=== PATIENT | female | born 1960 | race Caucasian/White ===

== ENCOUNTER 2017-05-11 05:48 | Inpatient (IN) | payer OTHER ==
[2017-05-11] MEDS ORDERED: SUGAMMADEX SODIUM 200 MG/2 ML VIAL IV (07:00)
[2017-05-11] MEDS ORDERED: ROCURONIUM 50 MG INJ (07:20)
[2017-05-11] MEDS ORDERED: GLYCOPYRROLATE 0.4 MG INJ (07:20)
[2017-05-11] MEDS ORDERED: MIDAZOLAM 1 MG/ML 2 ML INJ (07:20)
[2017-05-11] MEDS ORDERED: CEFAZOLIN 1 GM INJ (07:20)
[2017-05-11] MEDS ORDERED: PROPOFOL 20 ML (07:20)
[2017-05-11] MEDS ORDERED: NEOSTIGMINE 3 MG/3 ML SYRINGE (07:20)
[2017-05-11] MEDS ORDERED: DEXAMETHASONE 4 MG/ML 1 ML INJ (07:21)
[2017-05-11] MEDS ORDERED: FENTAnyl 50 MCG/ML VIAL (07:21)
[2017-05-11] MEDS ORDERED: ONDANSETRON 4 MG INJ (07:21)
[2017-05-11] MEDS ORDERED: morphine SULFATE/PF (10 MG/10 ML) INJ (07:26)
[2017-05-11] MEDS: CEFAZOLIN 2 GM/50 ML (PMX) 50 ML IVPB (07:43)
[2017-05-11] MEDS: TRANEXAMIC ACID 1,000 MG in DEXTROSE 5% 100 ML IV (08:00)
[2017-05-11] MEDS: TRANEXAMIC ACID 1,000 MG in DEXTROSE 5% 100 ML IVPB ×2 (08:07→08:26)
[2017-05-11] MEDS: BACITRACIN 50000 UNITS INJ IRR (08:20)
[2017-05-11] MEDS: POLYMYXIN B 500000 UNIT INJ (08:20)
[2017-05-11] MEDS ORDERED: MIDAZOLAM 1 MG/ML 2 ML INJ IV (09:30)
[2017-05-11] MEDS ORDERED: OXYCODONE/ACETAMINOPHEN (5/325) TAB PO ×2 (09:30)
[2017-05-11] MEDS ORDERED: ALBUTEROL 0.083% (NEB) 2.5 MG/3 ML AMP HHN (09:30)
[2017-05-11] MEDS ORDERED: EPHEDrine SULFATE 50 MG/5 ML SYG IV (09:30)
[2017-05-11] MEDS ORDERED: DIPHENHYDRAMINE 50 MG INJ IV (09:30)
[2017-05-11] MEDS ORDERED: hydrALAzine 20 MG INJ IV (09:30)
[2017-05-11] MEDS ORDERED: LABETALOL HCL 20MG INJ IV (09:30)
[2017-05-11] MEDS ORDERED: MEPERIDINE 25 MG INJ IV (09:30)
[2017-05-11] MEDS ORDERED: TRIMETHOBENZAMIDE 100 MG/ML VIAL IM (09:30)
[2017-05-11] MEDS ORDERED: ONDANSETRON 4 MG INJ IV (09:30)
[2017-05-11] MEDS ORDERED: FENTAnyl 50 MCG/ML VIAL IV ×3 (09:30)
[2017-05-11] MEDS ORDERED: IPRATROPIUM (NEB) 0.5 MG/2.5 ML AMP HHN (09:30)
[2017-05-11] MEDS ORDERED: HYDROmorphONE (0.2 MG/ML) 10ML SYG IV ×3 (09:30)
[2017-05-11] MEDS ORDERED: BETHANECHOL 25 MG TAB PO (10:00)
[2017-05-11] MEDS ORDERED: NA PHOSPHATE/BIPHOS 133 ML ENEMA PR (10:00)
[2017-05-11] MEDS ORDERED: NACL 0.9% 3 ML SYG IV (10:00)
[2017-05-11] MEDS ORDERED: ZOLPIDEM 5 MG TAB PO (10:00)
[2017-05-11] MEDS ORDERED: MAGNESIUM HYDROXIDE 30ML CUP PO (10:00)
[2017-05-11] MEDS ORDERED: SENNA/DOCUSATE NA (8.6MG/50MG) TAB PO (10:00)
[2017-05-11] MEDS ORDERED: NALOXONE (0.4 MG/ML) INJ IV (10:00)
[2017-05-11] MEDS ORDERED: BISACODYL 10 MG SUPP PR (10:00)
[2017-05-11] MEDS ORDERED: BACITRACIN 50000 UNITS INJ (10:12)
[2017-05-11] MEDS: CEFAZOLIN 1 GM/50 ML (PMX) 50 ML IVPB ×2 (10:18→17:31)
[2017-05-11] MEDS: ASPIRIN (EC) 325 MG TAB PO (10:19)
[2017-05-11] MEDS: ONDANSETRON 4 MG INJ IV ×3 (10:19→22:00)
[2017-05-11] MEDS: DOCUSATE SODIUM 100 MG CAP PO (10:19)
[2017-05-11] MEDS: SOD CHLORIDE 0.9% 1,000 ML IV (10:20)
[2017-05-11] MEDS: DIPHENHYDRAMINE 50 MG INJ IM (11:07)
[2017-05-11] MEDS: METOCLOPRAMIDE 10 MG INJ IV (12:09)
[2017-05-11] MEDS: GABAPENTIN 100 MG CAP PO ×2 (12:21→20:20)
[2017-05-11] MEDS: DIPHENHYDRAMINE 50 MG INJ IV (17:31)
[2017-05-11] MEDS ORDERED: GABAPENTIN 100 MG CAP PO (21:00)
[2017-05-12] MEDS: SOD CHLORIDE 0.9% 1,000 ML IV ×2 (00:18→09:45)
[2017-05-12] MEDS: oxyCODONE 5 MG TAB PO ×3 (00:24→11:03)
[2017-05-12] MEDS: CEFAZOLIN 1 GM/50 ML (PMX) 50 ML IVPB (02:04)
[2017-05-12] MEDS: KETOROLAC 15 MG INJ IV (02:05)
[2017-05-12] MEDS: ONDANSETRON 4 MG INJ IV (04:12)
[2017-05-12 05:51] LABS: ADD MAN DIFF? NO
[2017-05-12 06:00] LABS: BASOPHILS % 0.1 % (0.0-2.0); EOSINOPHILS % 0.1 % (0.0-7.0); HEMATOCRIT 26.4 % (37.0-47.0); HEMOGLOBIN 8.6 g/dl (12.0-16.0); LYMPHOCYTES # 1.4 10^3/ul (0.8-2.9); LYMPHOCYTES % 16.8 % (15.0-51.0); MEAN CORPUSCULAR HEMOGLOBIN 30.9 pg (29.0-33.0); MEAN CORPUSCULAR HGB CONC 32.6 g/dl (32.0-37.0); MEAN PLATELET VOLUME 9.4 fl (7.4-10.4); MONOCYTE # 1.1 10^3/ul (0.3-0.9); MONOCYTES % 12.5 % (0.0-11.0); NEUTROPHILS % 69.9 % (39.0-77.0); PLATELET COUNT 257 10^3/UL (140-415); RED BLOOD COUNT 2.78 10^6/ul (4.20-5.40); RED CELL DISTRIBUTION WIDTH 13.2 % (11.5-14.5)
[2017-05-12 06:00] LABS: WHITE BLOOD COUNT 8.6 10^3/ul (4.8-10.8)
[2017-05-12 06:32] LABS: ANION GAP 11 (8-16); BLOOD UREA NITROGEN 17 mg/dl (7-20); CALCIUM 8.7 mg/dl (8.4-10.2); CARBON DIOXIDE 27 mmol/L (21-31); CHLORIDE 104 mmol/L (97-110); CREATININE 0.82 mg/dl (0.44-1.00); GLUCOSE 103 mg/dl (70-220); POTASSIUM 4.6 mmol/L (3.5-5.1); SODIUM 137 mmol/L (135-144)
[2017-05-12] MEDS: LEVOTHYROXINE 50 MCG TAB PO (06:32)
[2017-05-12] MEDS: PANTOPRAZOLE (EC) 40 MG TAB PO (06:32)
[2017-05-12] MEDS: CALCIUM/VITAMIN D (500/200) TAB PO (08:34)
[2017-05-12] MEDS: ASCORBIC ACID 500 MG TAB PO (08:34)
[2017-05-12] MEDS: ASPIRIN (EC) 325 MG TAB PO (08:34)
[2017-05-12] MEDS: GABAPENTIN 100 MG CAP PO ×2 (08:34→12:13)
[2017-05-12] MEDS: FERROUS FUMARATE (SR) TAB PO (08:34)
[2017-05-12] MEDS: DOCUSATE SODIUM 100 MG CAP PO (08:34)
[2017-05-12] MEDS ORDERED: CELECOXIB 200 MG CAP PO (09:00)
[2017-05-12] MEDS: CELECOXIB 100 MG CAP PO (09:42)
[2017-05-12] MEDS ORDERED: oxyCODONE 15 MG TAB PO (11:00)
== END 2017-05-12 15:25 | disposition home health service (06) | DRG 470 ==
LOC: REC 05:48 → MS1 10:55
PROC: 0SR904A Replacement of Right Hip Joint with Ceramic on Polyethylene Synthetic Substitute, Uncemented, Open Approach (ICD-10-PCS; principal; 2017-05-11 07:30)
DX: M16.11 Unilateral primary osteoarthritis, right hip (principal); E66.9 Obesity, unspecified; E55.9 Vitamin D deficiency, unspecified; Z68.34 Body mass index [BMI] 34.0-34.9, adult; E03.9 Hypothyroidism, unspecified; D64.9 Anemia, unspecified
CPT/HCPCS: 73530; 80048; 85025; 86850; 86900; 86901; 87081; 88305; 88311; 97110; 97116; 97163; 97530

== ENCOUNTER 2017-09-08 03:48 | Inpatient (IN) | payer OTHER ==
[2017-09-08] MEDS ORDERED: DOCUSATE SODIUM 100 MG CAP PO (05:30)
[2017-09-08] MEDS ORDERED: MAGNESIUM HYDROXIDE 30ML CUP PO (05:30)
[2017-09-08] MEDS ORDERED: NACL 0.9% 3 ML SYG IV (05:30)
[2017-09-08] MEDS ORDERED: BISACODYL (EC) 5 MG TAB PO (05:30)
[2017-09-08] MEDS ORDERED: morphine 2 MG INJ IV (05:30)
[2017-09-08] MEDS: SOD CHLORIDE 0.9% 1,000 ML IV ×3 (06:13→19:43)
[2017-09-08] MEDS ORDERED: VANCOMYCIN IV PER PHARMACY XX (07:00)
[2017-09-08] MEDS: LACTOBACILLUS RHAMNOSUS CAP PO ×2 (08:18→21:27)
[2017-09-08] MEDS: FAMOTIDINE 20 MG TAB PO ×2 (08:18→21:27)
[2017-09-08] MEDS: VANCOMYCIN 2 GM in SOD CHLORIDE 0.9% 500 ML IVPB (10:02)
[2017-09-08] MEDS: OXYCODONE/ACETAMINOPHEN (5/325) TAB PO ×2 (12:54→19:34)
[2017-09-08] MEDS: ONDANSETRON 4 MG INJ IV (12:55)
[2017-09-08] MEDS ORDERED: morphine LIQ (10 MG/5 ML) CUP PO (14:30)
[2017-09-08] MEDS: IOHEXOL 300MG/ML 30 ML BTL (19:20)
[2017-09-08] MEDS: LIDOCAINE 1% (MDV) 10 ML INJ (19:20)
[2017-09-08] MEDS: VANCOMYCIN 1.25 GM in SOD CHLORIDE 0.9% 250 ML IVPB (21:27)
[2017-09-09] MEDS: OXYCODONE/ACETAMINOPHEN (10/325) TAB PO ×2 (01:22→09:35)
[2017-09-09] MEDS: SOD CHLORIDE 0.9% 1,000 ML IV ×4 (02:00→18:49)
[2017-09-09 05:57] LABS: ADD MAN DIFF? NO
[2017-09-09 06:00] LABS: WHITE BLOOD COUNT 13.8 10^3/ul (4.8-10.8)
[2017-09-09 06:00] LABS: BASOPHILS % 0.2 % (0.0-2.0); EOSINOPHILS % 0.1 % (0.0-7.0); HEMATOCRIT 29.1 % (37.0-47.0); HEMOGLOBIN 9.4 g/dl (12.0-16.0); LYMPHOCYTES # 1.7 10^3/ul (0.8-2.9); LYMPHOCYTES % 12.5 % (15.0-51.0); MEAN CORPUSCULAR HEMOGLOBIN 29.6 pg (29.0-33.0); MEAN CORPUSCULAR HGB CONC 32.3 g/dl (32.0-37.0); MEAN CORPUSCULAR VOLUME 91.5 fl (82.0-101.0); MONOCYTE # 1.2 10^3/ul (0.3-0.9); MONOCYTES % 8.3 % (0.0-11.0); NEUTROPHIL # 10.8 10^3/ul (1.6-7.5); PLATELET COUNT 273 10^3/UL (140-415); RED BLOOD COUNT 3.18 10^6/ul (4.20-5.40); RED CELL DISTRIBUTION WIDTH 14.4 % (11.5-14.5)
[2017-09-09 06:17] LABS: LACTIC ACID 0.9 mmol/L (0.5-2.0)
[2017-09-09 06:36] LABS: ALANINE AMINOTRANSFERASE 35 IU/L (13-69); ALBUMIN 3.4 g/dl (3.3-4.9); ALKALINE PHOSPHATASE 77 IU/L (42-121); ANION GAP 11 (8-16); ASPARTATE AMINO TRANSFERASE 24 IU/L (15-46); BILIRUBIN,INDIRECT 0.4 mg/dl (0-1.1); BILIRUBIN,TOTAL 0.4 mg/dl (0.2-1.3); BLOOD UREA NITROGEN 13 mg/dl (7-20); CALCIUM 8.8 mg/dl (8.4-10.2); CARBON DIOXIDE 27 mmol/L (21-31); CHLORIDE 106 mmol/L (97-110); CREATININE 0.96 mg/dl (0.44-1.00); GLUCOSE 102 mg/dl (70-220); POTASSIUM 3.4 mmol/L (3.5-5.1); SODIUM 141 mmol/L (135-144); TOTAL PROTEIN 6.8 g/dl (6.1-8.1)
[2017-09-09 07:11] LABS: HEMOGLOBIN A1C 5.6 % (0-5.9)
[2017-09-09] MEDS: ONDANSETRON 4 MG INJ IV ×5 (08:30→21:38)
[2017-09-09] MEDS: FAMOTIDINE 20 MG TAB PO ×2 (09:00→21:38)
[2017-09-09] MEDS: LACTOBACILLUS RHAMNOSUS CAP PO ×2 (09:00→21:36)
[2017-09-09] MEDS ORDERED: ASCORBIC ACID 500 MG TAB.CHEW PO (09:16)
[2017-09-09] MEDS: GABAPENTIN 100 MG CAP PO ×3 (09:16→21:37)
[2017-09-09] MEDS: LEVOTHYROXINE 50 MCG TAB PO (09:17)
[2017-09-09] MEDS: ASCORBIC ACID 500 MG TAB PO (09:26)
[2017-09-09] MEDS: VANCOMYCIN 1.25 GM in SOD CHLORIDE 0.9% 250 ML IVPB ×2 (09:35→21:38)
[2017-09-09] MEDS: CALCIUM/VITAMIN D (500/200) TAB PO (11:00)
[2017-09-09] MEDS ORDERED: POLYMYXIN B 500000 UNIT INJ ×2 (13:28→15:53)
[2017-09-09] MEDS ORDERED: ROCURONIUM 50 MG INJ (13:51)
[2017-09-09] MEDS ORDERED: METOCLOPRAMIDE 10 MG INJ (13:51)
[2017-09-09] MEDS ORDERED: MIDAZOLAM 1 MG/ML 2 ML INJ (13:51)
[2017-09-09] MEDS ORDERED: FENTAnyl 50 MCG/ML VIAL ×2 (13:51→16:46)
[2017-09-09] MEDS ORDERED: PROPOFOL 20 ML (13:51)
[2017-09-09] MEDS ORDERED: ONDANSETRON 4 MG INJ ×2 (13:51→16:27)
[2017-09-09] MEDS ORDERED: SUCCINYLCHOLINE CHLORIDE 100 MG/5 ML SYG IV (13:51)
[2017-09-09] MEDS ORDERED: BUPIVACAINE 0.75%/DEXT (SPINAL) 2 ML INJ (13:53)
[2017-09-09] MEDS ORDERED: DIPHENHYDRAMINE 50 MG INJ IV ×2 (15:00→17:00)
[2017-09-09] MEDS ORDERED: BETHANECHOL 25 MG TAB PO (15:00)
[2017-09-09] MEDS ORDERED: MAGNESIUM HYDROXIDE 30ML CUP PO (15:00)
[2017-09-09] MEDS ORDERED: BISACODYL 10 MG SUPP PR (15:00)
[2017-09-09] MEDS ORDERED: NA PHOSPHATE/BIPHOS 133 ML ENEMA PR (15:00)
[2017-09-09] MEDS ORDERED: NALOXONE (0.4 MG/ML) INJ IV (15:00)
[2017-09-09] MEDS ORDERED: SENNA/DOCUSATE NA (8.6MG/50MG) TAB PO (15:00)
[2017-09-09] MEDS ORDERED: NACL 0.9% 3 ML SYG IV (15:00)
[2017-09-09] MEDS ORDERED: CEFAZOLIN 1 GM/50 ML (PMX) 50 ML IVPB (15:00)
[2017-09-09] MEDS ORDERED: VANCOMYCIN 1 GM INJ (15:24)
[2017-09-09] MEDS: POLYMYXIN B 500000 UNIT INJ (15:31)
[2017-09-09] MEDS: BACITRACIN 50000 UNITS INJ (15:31)
[2017-09-09] MEDS ORDERED: ACETAMINOPHEN 1000MG/100ML IV 100 ML (16:22)
[2017-09-09] MEDS ORDERED: KETOROLAC 30 MG INJ (16:22)
[2017-09-09] MEDS ORDERED: MEPERIDINE 25 MG INJ (16:54)
[2017-09-09] MEDS ORDERED: METOCLOPRAMIDE 10 MG INJ IV (17:00)
[2017-09-09] MEDS ORDERED: FENTAnyl 50 MCG/ML VIAL IV (17:00)
[2017-09-09] MEDS: LIDOCAINE 1% (MPF) 5 ML VIAL SC (17:00)
[2017-09-09] MEDS ORDERED: TRIMETHOBENZAMIDE 100 MG/ML VIAL IM (17:00)
[2017-09-09] MEDS ORDERED: LABETALOL HCL 20MG INJ IV (17:00)
[2017-09-09] MEDS ORDERED: OXYCODONE/ACETAMINOPHEN (5/325) TAB PO ×2 (17:00)
[2017-09-09] MEDS ORDERED: HYDROmorphONE 1 MG/5 ML IV SYRINGE IV (17:00)
[2017-09-09] MEDS ORDERED: hydrALAzine 20 MG INJ IV (17:00)
[2017-09-09] MEDS ORDERED: PROCHLORPERAZINE 10 MG INJ IV (17:00)
[2017-09-09] MEDS: morphine (1 MG/ML) 10ML SYRINGE IV ×3 (17:16→17:44)
[2017-09-09] MEDS: MEPERIDINE 25 MG INJ IV (17:20)
[2017-09-09] MEDS: ASPIRIN (EC) 325 MG TAB PO (17:30)
[2017-09-09] MEDS: DOCUSATE SODIUM 100 MG CAP PO (17:31)
[2017-09-09] MEDS: CEFTRIAXONE 1 GM/50 ML (PMX) 50 ML IVPB (18:49)
[2017-09-09] MEDS ORDERED: GABAPENTIN 100 MG CAP PO (21:00)
[2017-09-09 21:04] LABS: VANCOMYCIN,TROUGH 12.4 ug/ml (10.0-20.0)
[2017-09-10] MEDS: KETOROLAC 15 MG INJ IV ×4 (02:41→23:25)
[2017-09-10] MEDS: ONDANSETRON 4 MG INJ IV ×3 (02:42→16:07)
[2017-09-10 05:54] LABS: ADD MAN DIFF? NO
[2017-09-10] MEDS: PANTOPRAZOLE (EC) 40 MG TAB PO (06:08)
[2017-09-10] MEDS: LEVOTHYROXINE 50 MCG TAB PO (06:08)
[2017-09-10 06:41] LABS: ANION GAP 13 (8-16); BLOOD UREA NITROGEN 15 mg/dl (7-20); CALCIUM 8.5 mg/dl (8.4-10.2); CARBON DIOXIDE 23 mmol/L (21-31); CHLORIDE 109 mmol/L (97-110); CREATININE 0.94 mg/dl (0.44-1.00); GLUCOSE 87 mg/dl (70-220); POTASSIUM 3.2 mmol/L (3.5-5.1); SODIUM 142 mmol/L (135-144)
[2017-09-10 07:07] LABS: BASOPHILS % 0.2 % (0.0-2.0); EOSINOPHILS % 0.3 % (0.0-7.0); HEMATOCRIT 25.5 % (37.0-47.0); HEMOGLOBIN 8.2 g/dl (12.0-16.0); LYMPHOCYTES # 1.3 10^3/ul (0.8-2.9); LYMPHOCYTES % 11.6 % (15.0-51.0); MEAN CORPUSCULAR HEMOGLOBIN 29.7 pg (29.0-33.0); MEAN CORPUSCULAR HGB CONC 32.2 g/dl (32.0-37.0); MEAN CORPUSCULAR VOLUME 92.4 fl (82.0-101.0); MEAN PLATELET VOLUME 9.8 fl (7.4-10.4); MONOCYTE # 0.9 10^3/ul (0.3-0.9); NEUTROPHIL # 9.1 10^3/ul (1.6-7.5); NEUTROPHILS % 78.9 % (39.0-77.0); PLATELET COUNT 263 10^3/UL (140-415); RED BLOOD COUNT 2.76 10^6/ul (4.20-5.40); RED CELL DISTRIBUTION WIDTH 14.4 % (11.5-14.5)
[2017-09-10 07:07] LABS: WHITE BLOOD COUNT 11.6 10^3/ul (4.8-10.8)
[2017-09-10] MEDS: POTASSIUM CHLORIDE (SR) 20 MEQ TAB PO ×2 (08:27→12:18)
[2017-09-10] MEDS ORDERED: CALCIUM CARB PO (09:00)
[2017-09-10] MEDS ORDERED: CELECOXIB 200 MG CAP PO (09:00)
[2017-09-10] MEDS ORDERED: [UNRECOGNIZED DRUG - OTHER] PO (09:00)
[2017-09-10] MEDS: VANCOMYCIN 1.25 GM in SOD CHLORIDE 0.9% 250 ML IVPB (09:23)
[2017-09-10] MEDS: GABAPENTIN 100 MG CAP PO ×3 (09:24→20:43)
[2017-09-10] MEDS: DOCUSATE SODIUM 100 MG CAP PO ×2 (09:24→20:43)
[2017-09-10] MEDS: LACTOBACILLUS RHAMNOSUS CAP PO ×2 (09:24→20:43)
[2017-09-10] MEDS: FAMOTIDINE 20 MG TAB PO ×2 (09:25→20:43)
[2017-09-10] MEDS: CALCIUM/VITAMIN D (500/200) TAB PO (09:25)
[2017-09-10] MEDS: ASCORBIC ACID 500 MG TAB PO (09:25)
[2017-09-10] MEDS: FERROUS FUMARATE (SR) TAB PO ×2 (09:25→20:42)
[2017-09-10] MEDS: ASPIRIN (EC) 325 MG TAB PO (09:25)
[2017-09-10] MEDS: CELECOXIB 100 MG CAP PO ×2 (11:35→20:43)
[2017-09-10] MEDS: SOD CHLORIDE 0.9% 1,000 ML IV (16:02)
[2017-09-10] MEDS: CEFTRIAXONE 1 GM/50 ML (PMX) 50 ML IVPB (18:18)
[2017-09-10] MEDS: VANCOMYCIN 1.5 GM in SOD CHLORIDE 0.9% 250 ML IVPB (20:45)
[2017-09-11] MEDS: SOD CHLORIDE 0.9% 1,000 ML IV ×2 (04:11→16:41)
[2017-09-11 05:17] LABS: ADD MAN DIFF? NO
[2017-09-11 05:27] LABS: WHITE BLOOD COUNT 7.3 10^3/ul (4.8-10.8)
[2017-09-11 05:27] LABS: BASOPHILS % 0.3 % (0.0-2.0); EOSINOPHILS # 0.1 10^3/ul (0.0-0.5); EOSINOPHILS % 1.9 % (0.0-7.0); HEMOGLOBIN 7.5 g/dl (12.0-16.0); LYMPHOCYTES # 1.1 10^3/ul (0.8-2.9); LYMPHOCYTES % 15.2 % (15.0-51.0); MEAN CORPUSCULAR HEMOGLOBIN 29.4 pg (29.0-33.0); MEAN CORPUSCULAR HGB CONC 32.6 g/dl (32.0-37.0); MEAN CORPUSCULAR VOLUME 90.2 fl (82.0-101.0); MEAN PLATELET VOLUME 9.8 fl (7.4-10.4); MONOCYTE # 0.7 10^3/ul (0.3-0.9); MONOCYTES % 9.9 % (0.0-11.0); NEUTROPHILS % 68.3 % (39.0-77.0); PLATELET COUNT 277 10^3/UL (140-415); RED BLOOD COUNT 2.55 10^6/ul (4.20-5.40); RED CELL DISTRIBUTION WIDTH 14.6 % (11.5-14.5)
[2017-09-11 05:59] LABS: ANION GAP 10 (8-16); BLOOD UREA NITROGEN 14 mg/dl (7-20); CALCIUM 8.4 mg/dl (8.4-10.2); CARBON DIOXIDE 25 mmol/L (21-31); CHLORIDE 111 mmol/L (97-110); CREATININE 0.98 mg/dl (0.44-1.00); GLUCOSE 88 mg/dl (70-220); POTASSIUM 3.8 mmol/L (3.5-5.1); SODIUM 142 mmol/L (135-144)
[2017-09-11] MEDS: LEVOTHYROXINE 50 MCG TAB PO (06:08)
[2017-09-11] MEDS: PANTOPRAZOLE (EC) 40 MG TAB PO (06:08)
[2017-09-11] MEDS: GABAPENTIN 100 MG CAP PO ×3 (08:45→20:59)
[2017-09-11] MEDS: oxyCODONE 5 MG TAB PO ×2 (08:45→17:20)
[2017-09-11] MEDS: CELECOXIB 100 MG CAP PO ×2 (08:45→20:58)
[2017-09-11] MEDS: LACTOBACILLUS RHAMNOSUS CAP PO ×2 (08:48→20:58)
[2017-09-11] MEDS: ASPIRIN (EC) 325 MG TAB PO (08:48)
[2017-09-11] MEDS: ASCORBIC ACID 500 MG TAB PO (08:48)
[2017-09-11] MEDS: CALCIUM/VITAMIN D (500/200) TAB PO (08:48)
[2017-09-11] MEDS: FERROUS FUMARATE (SR) TAB PO ×2 (08:48→20:58)
[2017-09-11] MEDS: FAMOTIDINE 20 MG TAB PO ×2 (08:49→20:59)
[2017-09-11] MEDS: DOCUSATE SODIUM 100 MG CAP PO ×2 (08:49→20:58)
[2017-09-11] MEDS: VANCOMYCIN 1.5 GM in SOD CHLORIDE 0.9% 250 ML IVPB (08:49)
[2017-09-11 13:57] LABS: IRON 30 ug/dl (35-150)
[2017-09-11 14:07] LABS: % IRON SATURATION 15 % SAT (22-52); TOTAL IRON BINDING CAPACITY 196 ug/dl (241-421)
[2017-09-11] MEDS: FERROUS SULFATE (EC) 325 MG TAB PO (15:20)
[2017-09-11] MEDS: OXACILLIN 2 GM in SOD CHLORIDE 0.9% 50 ML IVPB (21:00)
[2017-09-11] MEDS: ACETAMINOPHEN 325 MG TAB PO (21:27)
[2017-09-11 22:32] LABS: ADD MAN DIFF? NO
[2017-09-11 22:35] LABS: WHITE BLOOD COUNT 7.9 10^3/ul (4.8-10.8)
[2017-09-11 22:35] LABS: ABNORMAL IP MESSAGE 1; BASOPHIL # 0.1 10^3/ul (0.0-0.1); BASOPHILS % 0.6 % (0.0-2.0); EOSINOPHILS # 0.2 10^3/ul (0.0-0.5); EOSINOPHILS % 2.3 % (0.0-7.0); HEMATOCRIT 25.3 % (37.0-47.0); HEMOGLOBIN 8.3 g/dl (12.0-16.0); LYMPHOCYTES # 1.5 10^3/ul (0.8-2.9); LYMPHOCYTES % 18.7 % (15.0-51.0); MEAN CORPUSCULAR HEMOGLOBIN 29.9 pg (29.0-33.0); MEAN CORPUSCULAR HGB CONC 32.8 g/dl (32.0-37.0); MEAN PLATELET VOLUME 9.3 fl (7.4-10.4); MONOCYTE # 0.9 10^3/ul (0.3-0.9); MONOCYTES % 11.6 % (0.0-11.0); NEUTROPHIL # 4.7 10^3/ul (1.6-7.5); PLATELET COUNT 326 10^3/UL (140-415); RED BLOOD COUNT 2.78 10^6/ul (4.20-5.40); RED CELL DISTRIBUTION WIDTH 14.6 % (11.5-14.5)
[2017-09-11 22:44] LABS: POSITIVE DIFF @See below
[2017-09-11 22:47] LABS: ADD UMIC NO; UR ASCORBIC ACID 20 mg/dL (NEGATIVE); UR BILIRUBIN (Dip) NEGATIVE (NEGATIVE); UR BLOOD (Dip) NEGATIVE (NEGATIVE); UR CLARITY CLEAR (CLEAR); UR COLOR YELLOW (YELLOW); UR GLUCOSE (Dip) NEGATIVE (NEGATIVE); UR KETONES (Dip) NEGATIVE (NEGATIVE); UR LEUKOCYTE ESTERASE (Dip) NEGATIVE Leu/ul (NEGATIVE); UR NITRITE (Dip) NEGATIVE (NEGATIVE); UR SPECIFIC GRAVITY (Dip) 1.011 (1.003-1.030); UR TOTAL PROTEIN (Dip) NEGATIVE (NEGATIVE); UR UROBILINOGEN (Dip) NEGATIVE (NEGATIVE)
[2017-09-12] MEDS: OXACILLIN 2 GM in SOD CHLORIDE 0.9% 50 ML IVPB ×6 (01:28→21:00)
[2017-09-12] MEDS: ONDANSETRON 4 MG INJ IV ×2 (03:03→15:17)
[2017-09-12] MEDS: SOD CHLORIDE 0.9% 1,000 ML IV ×2 (05:11→17:41)
[2017-09-12 05:38] LABS: ADD MAN DIFF? NO
[2017-09-12 05:46] LABS: WHITE BLOOD COUNT 7.1 10^3/ul (4.8-10.8)
[2017-09-12 05:46] LABS: ABNORMAL IP MESSAGE 1; BASOPHILS % 0.3 % (0.0-2.0); EOSINOPHILS # 0.2 10^3/ul (0.0-0.5); EOSINOPHILS % 2.4 % (0.0-7.0); HEMATOCRIT 22.8 % (37.0-47.0); HEMOGLOBIN 7.3 g/dl (12.0-16.0); LYMPHOCYTES # 1.2 10^3/ul (0.8-2.9); LYMPHOCYTES % 16.4 % (15.0-51.0); MEAN CORPUSCULAR HEMOGLOBIN 29.1 pg (29.0-33.0); MEAN CORPUSCULAR VOLUME 90.8 fl (82.0-101.0); MEAN PLATELET VOLUME 9.7 fl (7.4-10.4); MONOCYTES % 14.2 % (0.0-11.0); NEUTROPHIL # 4.1 10^3/ul (1.6-7.5); NEUTROPHILS % 58.4 % (39.0-77.0); PLATELET COUNT 293 10^3/UL (140-415); RED BLOOD COUNT 2.51 10^6/ul (4.20-5.40); RED CELL DISTRIBUTION WIDTH 14.6 % (11.5-14.5)
[2017-09-12 06:00] LABS: POSITIVE DIFF @See below
[2017-09-12] MEDS: LEVOTHYROXINE 50 MCG TAB PO (06:11)
[2017-09-12] MEDS: PANTOPRAZOLE (EC) 40 MG TAB PO (06:11)
[2017-09-12 06:20] LABS: ANION GAP 11 (8-16); BLOOD UREA NITROGEN 12 mg/dl (7-20); CALCIUM 8.5 mg/dl (8.4-10.2); CARBON DIOXIDE 26 mmol/L (21-31); CHLORIDE 108 mmol/L (97-110); CREATININE 0.86 mg/dl (0.44-1.00); GLUCOSE 92 mg/dl (70-220); POTASSIUM 3.6 mmol/L (3.5-5.1); SODIUM 141 mmol/L (135-144)
[2017-09-12] MEDS: DOCUSATE SODIUM 100 MG CAP PO ×2 (09:15→21:26)
[2017-09-12] MEDS: ASPIRIN (EC) 325 MG TAB PO (09:15)
[2017-09-12] MEDS: CALCIUM/VITAMIN D (500/200) TAB PO (09:16)
[2017-09-12] MEDS: CELECOXIB 100 MG CAP PO ×2 (09:16→21:26)
[2017-09-12] MEDS: FAMOTIDINE 20 MG TAB PO ×2 (09:16→21:26)
[2017-09-12] MEDS: FERROUS FUMARATE (SR) TAB PO ×2 (09:16→21:26)
[2017-09-12] MEDS: FERROUS SULFATE (EC) 325 MG TAB PO (09:16)
[2017-09-12] MEDS: ASCORBIC ACID 500 MG TAB PO (09:16)
[2017-09-12] MEDS: GABAPENTIN 100 MG CAP PO ×3 (09:16→21:26)
[2017-09-12] MEDS: LACTOBACILLUS RHAMNOSUS CAP PO ×2 (09:16→21:26)
[2017-09-12] MEDS: oxyCODONE 5 MG TAB PO ×2 (12:45→22:16)
[2017-09-12 13:26] LABS: PROCALCITONIN 0.14 ng/mL (<0.10)
[2017-09-12 14:26] LABS: HEMATOCRIT 23.5 % (37.0-47.0); HEMOGLOBIN 7.7 g/dl (12.0-16.0)
[2017-09-12] MEDS: CEFAZOLIN 2 GM/50 ML (PMX) 50 ML IVPB (21:20)
[2017-09-12] MEDS: CALCIUM CARBONATE 500 MG CHEW TAB PO (21:25)
[2017-09-12] MEDS ORDERED: CEFAZOLIN 2 GM/50 ML (PMX) 50 ML IVPB (22:00)
[2017-09-13] MEDS: OXACILLIN 2 GM in SOD CHLORIDE 0.9% 50 ML IVPB ×3 (01:00→09:00)
[2017-09-13] MEDS: oxyCODONE 5 MG TAB PO ×2 (03:52→19:51)
[2017-09-13] MEDS: CEFAZOLIN 2 GM/50 ML (PMX) 50 ML IVPB ×3 (05:36→22:23)
[2017-09-13 05:37] LABS: ADD MAN DIFF? NO
[2017-09-13] MEDS: PANTOPRAZOLE (EC) 40 MG TAB PO (05:37)
[2017-09-13 05:44] LABS: WHITE BLOOD COUNT 7.8 10^3/ul (4.8-10.8)
[2017-09-13 05:44] LABS: ABNORMAL IP MESSAGE 1; BASOPHILS % 0.4 % (0.0-2.0); EOSINOPHILS # 0.2 10^3/ul (0.0-0.5); EOSINOPHILS % 3.1 % (0.0-7.0); HEMATOCRIT 22.9 % (37.0-47.0); HEMOGLOBIN 7.4 g/dl (12.0-16.0); LYMPHOCYTES # 1.8 10^3/ul (0.8-2.9); MEAN CORPUSCULAR HEMOGLOBIN 29.4 pg (29.0-33.0); MEAN CORPUSCULAR HGB CONC 32.3 g/dl (32.0-37.0); MEAN CORPUSCULAR VOLUME 90.9 fl (82.0-101.0); MEAN PLATELET VOLUME 9.3 fl (7.4-10.4); MONOCYTE # 0.9 10^3/ul (0.3-0.9); MONOCYTES % 11.4 % (0.0-11.0); NEUTROPHIL # 4.2 10^3/ul (1.6-7.5); NEUTROPHILS % 53.5 % (39.0-77.0); PLATELET COUNT 343 10^3/UL (140-415); RED BLOOD COUNT 2.52 10^6/ul (4.20-5.40); RED CELL DISTRIBUTION WIDTH 14.6 % (11.5-14.5)
[2017-09-13 05:47] LABS: POSITIVE DIFF @See below
[2017-09-13] MEDS: SOD CHLORIDE 0.9% 1,000 ML IV ×2 (06:11→18:41)
[2017-09-13 06:15] LABS: ANION GAP 10 (8-16); BLOOD UREA NITROGEN 10 mg/dl (7-20); CALCIUM 8.7 mg/dl (8.4-10.2); CARBON DIOXIDE 28 mmol/L (21-31); CHLORIDE 108 mmol/L (97-110); CREATININE 0.86 mg/dl (0.44-1.00); GLUCOSE 94 mg/dl (70-220); POTASSIUM 3.5 mmol/L (3.5-5.1); SODIUM 142 mmol/L (135-144)
[2017-09-13] MEDS: LEVOTHYROXINE 50 MCG TAB PO (06:43)
[2017-09-13] MEDS: CELECOXIB 100 MG CAP PO ×2 (09:18→22:24)
[2017-09-13] MEDS: GABAPENTIN 100 MG CAP PO ×4 (09:18→22:23)
[2017-09-13] MEDS: FAMOTIDINE 20 MG TAB PO ×3 (09:18→22:24)
[2017-09-13] MEDS: ASPIRIN (EC) 325 MG TAB PO (09:18)
[2017-09-13] MEDS: FERROUS SULFATE (EC) 325 MG TAB PO (09:18)
[2017-09-13] MEDS: ASCORBIC ACID 500 MG TAB PO (09:18)
[2017-09-13] MEDS: LACTOBACILLUS RHAMNOSUS CAP PO ×3 (09:18→22:23)
[2017-09-13] MEDS: CALCIUM/VITAMIN D (500/200) TAB PO (09:18)
[2017-09-13] MEDS: FERROUS FUMARATE (SR) TAB PO ×3 (13:02→22:24)
[2017-09-14] MEDS: oxyCODONE 5 MG TAB PO (01:19)
[2017-09-14 05:21] LABS: WHITE BLOOD COUNT 7.6 10^3/ul (4.8-10.8)
[2017-09-14 05:21] LABS: ABNORMAL IP MESSAGE 1; HEMATOCRIT 23.5 % (37.0-47.0); HEMOGLOBIN 7.5 g/dl (12.0-16.0); MEAN CORPUSCULAR HEMOGLOBIN 29.2 pg (29.0-33.0); MEAN CORPUSCULAR HGB CONC 31.9 g/dl (32.0-37.0); MEAN CORPUSCULAR VOLUME 91.4 fl (82.0-101.0); MEAN PLATELET VOLUME 8.9 fl (7.4-10.4); PLATELET COUNT 397 10^3/UL (140-415); RED BLOOD COUNT 2.57 10^6/ul (4.20-5.40); RED CELL DISTRIBUTION WIDTH 14.6 % (11.5-14.5)
[2017-09-14 05:45] LABS: ANION GAP 9 (8-16); BLOOD UREA NITROGEN 10 mg/dl (7-20); CALCIUM 8.6 mg/dl (8.4-10.2); CARBON DIOXIDE 28 mmol/L (21-31); CHLORIDE 106 mmol/L (97-110); CREATININE 0.79 mg/dl (0.44-1.00); GLUCOSE 92 mg/dl (70-220); POTASSIUM 3.7 mmol/L (3.5-5.1); SODIUM 139 mmol/L (135-144)
[2017-09-14 05:51] LABS: PHOSPHORUS 4.7 mg/dl (2.5-4.9)
[2017-09-14 05:51] LABS: MAGNESIUM 1.9 mg/dl (1.7-2.5)
[2017-09-14] MEDS: PANTOPRAZOLE (EC) 40 MG TAB PO (06:05)
[2017-09-14] MEDS: LEVOTHYROXINE 50 MCG TAB PO (06:05)
[2017-09-14] MEDS: CEFAZOLIN 2 GM/50 ML (PMX) 50 ML IVPB ×2 (06:06→12:26)
[2017-09-14 06:15] LABS: POSITIVE DIFF @See below
[2017-09-14 06:16] LABS: ADD MAN DIFF? YES
[2017-09-14] MEDS: SOD CHLORIDE 0.9% 1,000 ML IV (07:11)
[2017-09-14 08:39] LABS: ANISOCYTOSIS 1+ (0-0); BAND NEUTROPHILS #M 0.1 10^3/ul (0.0-0.6); BAND NEUTROPHILS % (M) 2 % (0-4); EOSINOPHILS % (M) 1 % (0-7); GIANT THROMBO% (M) 1 % (0-0); LYMPHOCYTES #M 1.9 10^3/ul (0.8-2.9); LYMPHOCYTES % (M) 26 % (15-51); METAMYELOCYTES #M 0.1 10^3/ul (0.0-0.0); METAMYELOCYTES %M 2 % (0-0); MICROCYTOSIS 1+ (0-0); MONOCYTE #M 0.2 10^3/ul (0.3-0.9); MONOCYTES % (M) 3 % (0-11); MYELOCYTES #M 0.2 10^3/ul (0.0-0.0); MYELOCYTES % (M) 3 % (0-0); PLATELET ESTIMATE NORMAL; POLYCHROMASIA 3+ (0-0); REACTIVE LYMPHOCYTES #M 0.5 10^3/ul (0.0-0.0); REACTIVE LYMPHOCYTES% (M) 7 % (0-0); SEG NEUT #M 4.3 10^3/ul (1.6-7.5); SEGMENTED NEUTROPHILS (M) % 56 % (39-77); SMUDGE%M 6 % (0-0)
[2017-09-14] MEDS: LACTOBACILLUS RHAMNOSUS CAP PO (09:00)
[2017-09-14] MEDS: CELECOXIB 100 MG CAP PO (09:02)
[2017-09-14] MEDS: GABAPENTIN 100 MG CAP PO ×2 (09:02→12:26)
[2017-09-14] MEDS: ASCORBIC ACID 500 MG TAB PO (09:02)
[2017-09-14] MEDS: FERROUS FUMARATE (SR) TAB PO (09:02)
[2017-09-14] MEDS: ASPIRIN (EC) 325 MG TAB PO (09:02)
[2017-09-14] MEDS: CALCIUM/VITAMIN D (500/200) TAB PO (09:03)
[2017-09-14] MEDS: FAMOTIDINE 20 MG TAB PO (09:03)
[2017-09-14] MEDS: FERROUS SULFATE (EC) 325 MG TAB PO (09:08)
== END 2017-09-14 14:52 | disposition home health service (06) | DRG 467 ==
LOC: MS1 03:48
PROC: 0SR902A Replacement of Right Hip Joint with Metal on Polyethylene Synthetic Substitute, Uncemented, Open Approach (ICD-10-PCS; principal; 2017-09-09 12:30)
PROC: 0SP90JZ Removal of Synthetic Substitute from Right Hip Joint, Open Approach (ICD-10-PCS; 2017-09-09 12:30)
PROC: 02HV33Z Insertion of Infusion Device into Superior Vena Cava, Percutaneous Approach (ICD-10-PCS; 2017-09-09 14:54)
PROC: 0S993ZX Drainage of Right Hip Joint, Percutaneous Approach, Diagnostic (ICD-10-PCS; 2017-09-09 14:54)
DX: T84.51XA Infection and inflammatory reaction due to internal right hip prosthesis, initial encounter (principal); D62 Acute posthemorrhagic anemia; D50.9 Iron deficiency anemia, unspecified; E03.9 Hypothyroidism, unspecified; E66.9 Obesity, unspecified; M19.90 Unspecified osteoarthritis, unspecified site; R50.82 Postprocedural fever; A49.01 Methicillin susceptible Staphylococcus aureus infection, unspecified site; Z96.641 Presence of right artificial hip joint; Z68.33 Body mass index [BMI] 33.0-33.9, adult
CPT/HCPCS: 36569; 71045; 73525; 76536; 76937; 80048; 80053; 80202; 81003; 83036; 83540; 83605; 83735; 84100; 84145; 84443; 85014; 85018; 85025; 85651; 87040; 87070; 87075; 87086; 87102; 87116; 88300; 93005; 97110; 97116; 97161; 97165; 97530

== ENCOUNTER 2018-03-17 14:32 | Inpatient (IN) | payer OTHER ==
[2018-03-17 15:19] LABS: ADD MAN DIFF? NO
[2018-03-17] MEDS: SODIUM CHLORIDE 0.9% 1L BAG IV* (15:21)
[2018-03-17] MEDS: morphine 4 MG/ML VIAL IV (15:23)
[2018-03-17] MEDS: ACETAMINOPHEN 325 MG TAB PO (15:23)
[2018-03-17] MEDS: ONDANSETRON 4 MG INJ IV (15:23)
[2018-03-17] MEDS: DIPHENHYDRAMINE 50 MG INJ IV (15:37)
[2018-03-17 15:39] LABS: BASOPHILS % 0.2 % (0.0-2.0); EOSINOPHILS % 0.4 % (0.0-7.0); HEMATOCRIT 33.1 % (37.0-47.0); LYMPHOCYTES # 1.3 10^3/ul (0.8-2.9); LYMPHOCYTES % 11.6 % (15.0-51.0); MEAN CORPUSCULAR HEMOGLOBIN 29.7 pg (29.0-33.0); MEAN CORPUSCULAR HGB CONC 33.2 g/dl (32.0-37.0); MEAN CORPUSCULAR VOLUME 89.5 fl (82.0-101.0); MEAN PLATELET VOLUME 9.8 fl (7.4-10.4); MONOCYTE # 1.3 10^3/ul (0.3-0.9); MONOCYTES % 11.6 % (0.0-11.0); NEUTROPHIL # 8.3 10^3/ul (1.6-7.5); NEUTROPHILS % 75.7 % (39.0-77.0); PLATELET COUNT 287 10^3/UL (140-415); RED CELL DISTRIBUTION WIDTH 14.2 % (11.5-14.5)
[2018-03-17 15:56] LABS: INR 0.93; PARTIAL THROMBOPLASTIN TIME 28.6 Sec (23.0-35.0); PROTIME 12.5 Sec (11.9-14.9)
[2018-03-17 15:58] LABS: ANION GAP 15 (5-13); BLOOD UREA NITROGEN 19 mg/dl (7-20); CALCIUM 9.8 mg/dl (8.4-10.2); CARBON DIOXIDE 25 mmol/L (21-31); CHLORIDE 101 mmol/L (97-110); CREATININE 0.74 mg/dl (0.44-1.00); Estimated GFR > 60 mL/min (>60); GLUCOSE 102 mg/dl (70-220); SODIUM 141 mmol/L (135-144)
[2018-03-17] MEDS ORDERED: ONDANSETRON 4 MG INJ IV ×2 (16:00→17:00)
[2018-03-17] MEDS ORDERED: ACETAMINOPHEN 325 MG TAB PO (16:00)
[2018-03-17] MEDS: AZTREONAM 1 GM/NS (PMX) 50 ML IVPB ×2 (16:08→23:59)
[2018-03-17 16:10] LABS: TROPONIN-I < 0.012 ng/ml (0.000-0.120)
[2018-03-17 16:21] LABS: C-REACTIVE PROTEIN 4.2 mg/dl (0.0-0.9)
[2018-03-17] MEDS: VANCOMYCIN 1 GM (PMX) 250 ML IVPB (16:45)
[2018-03-17 16:58] LABS: ERYTHROCYTE SEDIMENTATION RATE 58 mm/Hr (0-30)
[2018-03-17] MEDS ORDERED: NACL 0.9% 3 ML SYG IV (17:00)
[2018-03-17] MEDS ORDERED: ZOLPIDEM 5 MG TAB PO (17:00)
[2018-03-17] MEDS ORDERED: DOCUSATE SODIUM 100 MG CAP PO (17:00)
[2018-03-17] MEDS ORDERED: VANCOMYCIN IV PER PHARMACY XX (17:00)
[2018-03-17 17:14] LABS: ADD UMIC YES; UR ASCORBIC ACID NEGATIVE (NEGATIVE); UR BILIRUBIN (Dip) NEGATIVE (NEGATIVE); UR BLOOD (Dip) 1+ mg/dL (NEGATIVE); UR CLARITY CLEAR (CLEAR); UR COLOR YELLOW (YELLOW); UR GLUCOSE (Dip) NEGATIVE (NEGATIVE); UR KETONES (Dip) TRACE mg/dL (NEGATIVE); UR LEUKOCYTE ESTERASE (Dip) NEGATIVE Leu/ul (NEGATIVE); UR NITRITE (Dip) NEGATIVE (NEGATIVE); UR RBC 4 /HPF (0-5); UR SPECIFIC GRAVITY (Dip) 1.017 (1.003-1.030); UR TOTAL PROTEIN (Dip) NEGATIVE (NEGATIVE); UR UROBILINOGEN (Dip) NEGATIVE (NEGATIVE); UR WBC 2 /HPF (0-5)
[2018-03-17] MEDS: PIPER-TAZO 3.375 GM IV (PMX) 100 ML IVPB (18:00)
[2018-03-17] MEDS: DULOXETINE 30 MG CAP DR PO (20:23)
[2018-03-17] MEDS: VANCOMYCIN 1 GM in 250 ML IVPB (20:23)
[2018-03-17] MEDS: traMADol 50 MG TAB PO (20:23)
[2018-03-17] MEDS: morphine 2 MG INJ IV (22:09)
[2018-03-17] MEDS: HYDROCODONE/APAP (5/325) TAB PO (22:10)
[2018-03-18] MEDS: AZTREONAM 1 GM/NS (PMX) 50 ML IVPB ×3 (05:27→21:01)
[2018-03-18] MEDS: HYDROCODONE/APAP (5/325) TAB PO ×2 (06:04→14:04)
[2018-03-18 06:54] LABS: ADD MAN DIFF? NO
[2018-03-18 07:04] LABS: BASOPHILS % 0.3 % (0.0-2.0); EOSINOPHILS % 0.2 % (0.0-7.0); HEMATOCRIT 29.8 % (37.0-47.0); HEMOGLOBIN 9.7 g/dl (12.0-16.0); LYMPHOCYTES # 1.3 10^3/ul (0.8-2.9); LYMPHOCYTES % 12.6 % (15.0-51.0); MEAN CORPUSCULAR HEMOGLOBIN 29.8 pg (29.0-33.0); MEAN CORPUSCULAR HGB CONC 32.6 g/dl (32.0-37.0); MEAN CORPUSCULAR VOLUME 91.7 fl (82.0-101.0); MEAN PLATELET VOLUME 9.9 fl (7.4-10.4); MONOCYTE # 1.3 10^3/ul (0.3-0.9); NEUTROPHIL # 7.6 10^3/ul (1.6-7.5); NEUTROPHILS % 73.1 % (39.0-77.0); PLATELET COUNT 253 10^3/UL (140-415); RED BLOOD COUNT 3.25 10^6/ul (4.20-5.40); RED CELL DISTRIBUTION WIDTH 14.6 % (11.5-14.5)
[2018-03-18 07:04] LABS: WHITE BLOOD COUNT 10.3 10^3/ul (4.8-10.8)
[2018-03-18 07:13] LABS: HEMOGLOBIN A1C 5.2 % (0-5.9)
[2018-03-18 07:32] LABS: ANION GAP 9 (5-13); BLOOD UREA NITROGEN 13 mg/dl (7-20); CALCIUM 8.7 mg/dl (8.4-10.2); CARBON DIOXIDE 23 mmol/L (21-31); CHLORIDE 108 mmol/L (97-110); CREATININE 0.67 mg/dl (0.44-1.00); Estimated GFR > 60 mL/min (>60); GLUCOSE 107 mg/dl (70-220); MAGNESIUM 1.8 mg/dl (1.7-2.5); POTASSIUM 3.6 mmol/L (3.5-5.1); SODIUM 140 mmol/L (135-144)
[2018-03-18] MEDS: LEVOTHYROXINE 50 MCG TAB PO (07:55)
[2018-03-18] MEDS: DULOXETINE 30 MG CAP DR PO ×2 (08:32→21:00)
[2018-03-18] MEDS: traMADol 50 MG TAB PO ×2 (08:32→21:01)
[2018-03-18] MEDS: VANCOMYCIN 1.5 GM in SOD CHLORIDE 0.9% 250 ML IVPB ×2 (08:32→21:35)
[2018-03-18] MEDS: ACETAMINOPHEN 325 MG TAB PO (22:27)
[2018-03-18] MEDS ORDERED: morphine LIQ (10 MG/5 ML) CUP PO (23:30)
[2018-03-19] MEDS: AZTREONAM 1 GM/NS (PMX) 50 ML IVPB ×2 (05:41→13:52)
[2018-03-19] MEDS: LEVOTHYROXINE 50 MCG TAB PO (06:34)
[2018-03-19] MEDS: ENOXAPARIN 40 MG/0.4 ML SYG SC (08:46)
[2018-03-19] MEDS: DULOXETINE 30 MG CAP DR PO ×2 (08:47→20:54)
[2018-03-19] MEDS: traMADol 50 MG TAB PO ×2 (08:48→21:03)
[2018-03-19 09:21] LABS: VANCOMYCIN,TROUGH 12.5 ug/ml (10.0-20.0)
[2018-03-19] MEDS: VANCOMYCIN 1.5 GM in SOD CHLORIDE 0.9% 250 ML IVPB ×2 (09:39→20:53)
[2018-03-19] MEDS: CELECOXIB 100 MG CAP PO ×2 (09:39→20:54)
[2018-03-19 10:42] LABS: IRON 13 ug/dl (35-150)
[2018-03-19 10:52] LABS: % IRON SATURATION 6 % SAT (22-52); TOTAL IRON BINDING CAPACITY 227 ug/dl (241-421)
[2018-03-19] MEDS: ACETAMINOPHEN 325 MG TAB PO ×2 (11:18→21:57)
[2018-03-19 12:15] LABS: HEPATITIS C VIRAL ANTIBODY NEGATIVE (NEGATIVE)
[2018-03-20] MEDS: AZTREONAM 1 GM/NS (PMX) 50 ML IVPB ×2 (00:25→06:18)
[2018-03-20] MEDS: LEVOTHYROXINE 50 MCG TAB PO (06:18)
[2018-03-20] MEDS: DULOXETINE 30 MG CAP DR PO (09:03)
[2018-03-20] MEDS: CELECOXIB 100 MG CAP PO (09:03)
[2018-03-20] MEDS: traMADol 50 MG TAB PO (09:04)
[2018-03-20] MEDS: ENOXAPARIN 40 MG/0.4 ML SYG SC (09:04)
[2018-03-20] MEDS: VANCOMYCIN 1.5 GM in SOD CHLORIDE 0.9% 250 ML IVPB (09:04)
== END 2018-03-20 12:25 | disposition home or self-care (01) | DRG 872 ==
LOC: MS3 15:56 → E/R 14:32 → MS1 03-18 13:23
DX: A41.9 Sepsis, unspecified organism (principal); E03.9 Hypothyroidism, unspecified; M54.5 Low back pain; F32.9 Major depressive disorder, single episode, unspecified; Z96.641 Presence of right artificial hip joint; M25.551 Pain in right hip
CPT/HCPCS: 36415; 71045; 73510; 73700; 80048; 80202; 81001; 83036; 83540; 83605; 83735; 84100; 84484; 85025; 85610; 85651; 85730; 86140; 86803; 87040; 87086; 87400; 93005; 93970; 96374; 96375; 97161; 99291-25

== ENCOUNTER 2018-04-09 17:02 | Inpatient (IN) | payer OTHER ==
[2018-04-09] MEDS: SODIUM CHLORIDE 0.9% 1L BAG IV* (17:46)
[2018-04-09] MEDS: morphine 4 MG/ML VIAL IV (17:46)
[2018-04-09 17:51] LABS: ADD MAN DIFF? NO
[2018-04-09 17:56] LABS: WHITE BLOOD COUNT 9.9 10^3/ul (4.8-10.8)
[2018-04-09 17:56] LABS: BASOPHILS % 0.4 % (0.0-2.0); EOSINOPHILS % 0.1 % (0.0-7.0); HEMATOCRIT 27.9 % (37.0-47.0); LYMPHOCYTES # 1.1 10^3/ul (0.8-2.9); LYMPHOCYTES % 11.4 % (15.0-51.0); MEAN CORPUSCULAR HEMOGLOBIN 28.5 pg (29.0-33.0); MEAN CORPUSCULAR HGB CONC 32.3 g/dl (32.0-37.0); MEAN CORPUSCULAR VOLUME 88.3 fl (82.0-101.0); MEAN PLATELET VOLUME 8.7 fl (7.4-10.4); MONOCYTES % 9.6 % (0.0-11.0); NEUTROPHIL # 7.7 10^3/ul (1.6-7.5); NEUTROPHILS % 77.4 % (39.0-77.0); PLATELET COUNT 390 10^3/UL (140-415); RED BLOOD COUNT 3.16 10^6/ul (4.20-5.40); RED CELL DISTRIBUTION WIDTH 13.5 % (11.5-14.5)
[2018-04-09] MEDS: CEFEPIME 1GM/50 ML (PMX) 50 ML IVPB (18:10)
[2018-04-09] MEDS: VANCOMYCIN 1 GM (PMX) 250 ML IVPB (18:10)
[2018-04-09] MEDS: ACETAMINOPHEN 325 MG TAB PO (18:10)
[2018-04-09 18:11] LABS: INR 0.99; PROTIME 13.2 Sec (11.9-14.9)
[2018-04-09 18:12] LABS: PARTIAL THROMBOPLASTIN TIME 38.4 Sec (23.0-35.0)
[2018-04-09 18:18] LABS: ALANINE AMINOTRANSFERASE 10 IU/L (13-69); ALBUMIN 4.1 g/dl (3.3-4.9); ALBUMIN/GLOBULIN RATIO 1.02; ALKALINE PHOSPHATASE 107 IU/L (42-121); ANION GAP 11 (5-13); ASPARTATE AMINO TRANSFERASE 26 IU/L (15-46); BILIRUBIN,INDIRECT 0.1 mg/dl (0-1.1); BILIRUBIN,TOTAL 0.1 mg/dl (0.2-1.3); BLOOD UREA NITROGEN 14 mg/dl (7-20); CALCIUM 9.6 mg/dl (8.4-10.2); CARBON DIOXIDE 23 mmol/L (21-31); CHLORIDE 101 mmol/L (97-110); CREATININE 0.77 mg/dl (0.44-1.00); Estimated GFR > 60 mL/min (>60); GLUCOSE 109 mg/dl (70-220); POTASSIUM 3.4 mmol/L (3.5-5.1); SODIUM 135 mmol/L (135-144); TOTAL PROTEIN 8.1 g/dl (6.1-8.1)
[2018-04-09 18:35] LABS: C-REACTIVE PROTEIN 16.7 mg/dl (0.0-0.9)
[2018-04-09 19:01] LABS: ERYTHROCYTE SEDIMENTATION RATE 128 mm/Hr (0-30)
[2018-04-09] MEDS: SOD CHLORIDE 0.9% 100 ML (19:17)
[2018-04-09] MEDS: IOHEXOL 300MG/ML 150 ML BTL (19:17)
[2018-04-09] MEDS: FENTAnyl 50 MCG/ML VIAL IV ×2 (20:08→22:59)
[2018-04-09] MEDS ORDERED: VANCOMYCIN IV PER PHARMACY XX (21:30)
[2018-04-09] MEDS ORDERED: ONDANSETRON 4 MG INJ IV ×2 (21:30→22:00)
[2018-04-09] MEDS ORDERED: ACETAMINOPHEN 325 MG TAB PO (21:30)
[2018-04-09] MEDS ORDERED: NACL 0.9% 3 ML SYG IV (22:00)
[2018-04-09] MEDS ORDERED: DOCUSATE SODIUM 100 MG CAP PO (22:00)
[2018-04-09] MEDS ORDERED: BISACODYL (EC) 5 MG TAB PO (22:00)
[2018-04-09] MEDS ORDERED: morphine 2 MG INJ IV (22:00)
[2018-04-09 22:04] LABS: LACTIC ACID 0.7 mmol/L (0.5-2.0)
[2018-04-09] MEDS: SOD CHLORIDE 0.9% 1,000 ML IV (22:59)
[2018-04-09] MEDS: morphine SULFATE/PF (2 MG/2 ML) SYG IV (23:55)
[2018-04-09] MEDS: DIPHENHYDRAMINE 50 MG CAP PO (23:57)
[2018-04-10] MEDS: HEPARIN 5,000 UNIT/1 ML VIAL SC (00:03)
[2018-04-10] MEDS: ACETAMINOPHEN 325 MG TAB PO (00:05)
[2018-04-10] MEDS: morphine SULFATE/PF (2 MG/2 ML) SYG IV ×3 (04:21→20:40)
[2018-04-10] MEDS: DIPHENHYDRAMINE 50 MG CAP PO (05:02)
[2018-04-10] MEDS: HYDROCODONE/APAP (10/325) TAB PO ×3 (05:07→17:11)
[2018-04-10] MEDS: VANCOMYCIN HCL 1.25 GM in SOD CHLORIDE 0.9% 250 ML IVPB (05:10)
[2018-04-10 06:08] LABS: ADD MAN DIFF? NO
[2018-04-10 06:10] LABS: WHITE BLOOD COUNT 7.9 10^3/ul (4.8-10.8)
[2018-04-10 06:10] LABS: BASOPHILS % 0.4 % (0.0-2.0); HEMATOCRIT 25.3 % (37.0-47.0); HEMOGLOBIN 8.1 g/dl (12.0-16.0); LYMPHOCYTES # 1.5 10^3/ul (0.8-2.9); LYMPHOCYTES % 18.8 % (15.0-51.0); MEAN CORPUSCULAR HEMOGLOBIN 28.6 pg (29.0-33.0); MEAN CORPUSCULAR VOLUME 89.4 fl (82.0-101.0); MEAN PLATELET VOLUME 9.1 fl (7.4-10.4); MONOCYTE # 0.8 10^3/ul (0.3-0.9); MONOCYTES % 10.3 % (0.0-11.0); NEUTROPHIL # 5.5 10^3/ul (1.6-7.5); PLATELET COUNT 316 10^3/UL (140-415); RED BLOOD COUNT 2.83 10^6/ul (4.20-5.40); RED CELL DISTRIBUTION WIDTH 13.7 % (11.5-14.5)
[2018-04-10] MEDS: LEVOTHYROXINE 50 MCG TAB PO (06:13)
[2018-04-10] MEDS: POTASSIUM CHLORIDE (SR) 20 MEQ TAB PO (06:42)
[2018-04-10 07:11] LABS: ALANINE AMINOTRANSFERASE 19 IU/L (13-69); ALBUMIN 3.3 g/dl (3.3-4.9); ALBUMIN/GLOBULIN RATIO 0.89; ALKALINE PHOSPHATASE 78 IU/L (42-121); ANION GAP 14 (5-13); ASPARTATE AMINO TRANSFERASE 20 IU/L (15-46); BLOOD UREA NITROGEN 10 mg/dl (7-20); CALCIUM 8.9 mg/dl (8.4-10.2); CARBON DIOXIDE 24 mmol/L (21-31); CHLORIDE 102 mmol/L (97-110); CHOL/HDL RATIO 4.5 RATIO; CHOLESTEROL 124 mg/dl (100-200); CREATININE 0.74 mg/dl (0.44-1.00); Estimated GFR > 60 mL/min (>60); GLUCOSE 105 mg/dl (70-220); HDL CHOLESTEROL 27 mg/dl (37-92); LDL CHOLESTEROL,CALCULATED 81 mg/dl; MAGNESIUM 1.7 mg/dl (1.7-2.5); POTASSIUM 3.3 mmol/L (3.5-5.1); SODIUM 140 mmol/L (135-144); TRIGLYCERIDES 80 mg/dl (0-149)
[2018-04-10 07:43] LABS: ERYTHROCYTE SEDIMENTATION RATE 128 mm/Hr (0-30)
[2018-04-10 08:15] LABS: HEMOGLOBIN A1C 5.4 % (0-5.9)
[2018-04-10] MEDS: CEFEPIME 2GM/50 ML (PMX) 50 ML IVPB ×2 (08:21→17:10)
[2018-04-10] MEDS: DULOXETINE 30 MG CAP DR PO ×2 (08:21→20:41)
[2018-04-10] MEDS ORDERED: CEFEPIME 2GM/50 ML (PMX) 50 ML IVPB (09:00)
[2018-04-10] MEDS: PANTOPRAZOLE (EC) 40 MG TAB PO (11:12)
[2018-04-10] MEDS: CELECOXIB 200 MG CAP PO (11:13)
[2018-04-10] MEDS: SOD FERRIC GLUC COMPLX 125 MG in SOD CHLORIDE 0.9% 100 ML IVPB (14:08)
[2018-04-10] MEDS: VANCOMYCIN HCL 1.5 GM in SOD CHLORIDE 0.9% 250 ML IVPB (17:10)
[2018-04-10] MEDS: CELECOXIB 100 MG CAP PO (20:41)
[2018-04-10] MEDS: SOD CHLORIDE 0.9% 1,000 ML IV (20:42)
[2018-04-11] MEDS: CEFEPIME 2GM/50 ML (PMX) 50 ML IVPB ×3 (00:50→18:02)
[2018-04-11] MEDS: HYDROCODONE/APAP (10/325) TAB PO ×4 (00:50→20:24)
[2018-04-11] MEDS: morphine SULFATE/PF (2 MG/2 ML) SYG IV ×3 (05:34→18:39)
[2018-04-11] MEDS: VANCOMYCIN HCL 1.5 GM in SOD CHLORIDE 0.9% 250 ML IVPB ×2 (05:34→20:23)
[2018-04-11] MEDS: PANTOPRAZOLE (EC) 40 MG TAB PO (05:34)
[2018-04-11] MEDS: LEVOTHYROXINE 50 MCG TAB PO (05:34)
[2018-04-11 05:35] LABS: ADD MAN DIFF? NO
[2018-04-11 05:36] LABS: BASOPHILS % 0.4 % (0.0-2.0); EOSINOPHILS % 0.6 % (0.0-7.0); HEMATOCRIT 25.9 % (37.0-47.0); HEMOGLOBIN 8.2 g/dl (12.0-16.0); LYMPHOCYTES % 14.3 % (15.0-51.0); MEAN CORPUSCULAR HEMOGLOBIN 28.4 pg (29.0-33.0); MEAN CORPUSCULAR HGB CONC 31.7 g/dl (32.0-37.0); MEAN CORPUSCULAR VOLUME 89.6 fl (82.0-101.0); MEAN PLATELET VOLUME 9.3 fl (7.4-10.4); MONOCYTE # 0.8 10^3/ul (0.3-0.9); MONOCYTES % 11.8 % (0.0-11.0); NEUTROPHIL # 4.9 10^3/ul (1.6-7.5); NEUTROPHILS % 70.6 % (39.0-77.0); PLATELET COUNT 307 10^3/UL (140-415); RED BLOOD COUNT 2.89 10^6/ul (4.20-5.40); RED CELL DISTRIBUTION WIDTH 14.2 % (11.5-14.5)
[2018-04-11 05:36] LABS: WHITE BLOOD COUNT 6.9 10^3/ul (4.8-10.8)
[2018-04-11] MEDS: SOD CHLORIDE 0.9% 1,000 ML IV (05:44)
[2018-04-11 06:15] LABS: ALANINE AMINOTRANSFERASE 22 IU/L (13-69); ALBUMIN 3.3 g/dl (3.3-4.9); ALBUMIN/GLOBULIN RATIO 0.94; ALKALINE PHOSPHATASE 85 IU/L (42-121); ANION GAP 8 (5-13); ASPARTATE AMINO TRANSFERASE 29 IU/L (15-46); BLOOD UREA NITROGEN 15 mg/dl (7-20); CARBON DIOXIDE 24 mmol/L (21-31); CHLORIDE 106 mmol/L (97-110); CREATININE 0.68 mg/dl (0.44-1.00); Estimated GFR > 60 mL/min (>60); GLUCOSE 104 mg/dl (70-220); POTASSIUM 3.9 mmol/L (3.5-5.1); SODIUM 138 mmol/L (135-144); TOTAL PROTEIN 6.8 g/dl (6.1-8.1)
[2018-04-11] MEDS: DULOXETINE 30 MG CAP DR PO ×2 (08:09→20:24)
[2018-04-11] MEDS: CELECOXIB 100 MG CAP PO ×2 (08:09→20:24)
[2018-04-11] MEDS: LIDOCAINE 1% (MPF) 30 ML INJ INJ (11:30)
[2018-04-11] MEDS ORDERED: morphine 2 MG INJ IV (11:34)
[2018-04-11] MEDS: morphine 4 MG/ML VIAL IV (12:00)
[2018-04-11] MEDS: LORAZEPAM 2 MG INJ IV (12:52)
[2018-04-11] MEDS: SOD FERRIC GLUC COMPLX 125 MG in SOD CHLORIDE 0.9% 100 ML IVPB (13:46)
[2018-04-11] MEDS: LIDOCAINE 1% (MPF) 5 ML VIAL (14:05)
[2018-04-11 16:13] LABS: SYN FLD WBC 91033 /cmm (0-150)
[2018-04-11 16:14] LABS: SYN FLD SOURCE HIP FLUID
[2018-04-11 16:14] LABS: SYN FLD CLARITY CLOUDY; SYN FLD COLOR YELLOW; SYN FLD VOLUME 1.3 mL (0-3.5)
[2018-04-11 16:21] LABS: SYN FLD CRYSTALS NO CRYSTALS SEEN (None seen)
[2018-04-11 18:07] LABS: VANCOMYCIN,TROUGH 13.1 ug/ml (10.0-20.0)
[2018-04-12] MEDS: morphine SULFATE/PF (2 MG/2 ML) SYG IV (01:10)
[2018-04-12] MEDS: CEFEPIME 2GM/50 ML (PMX) 50 ML IVPB ×2 (01:10→10:00)
[2018-04-12 05:02] LABS: ADD MAN DIFF? NO
[2018-04-12 05:03] LABS: WHITE BLOOD COUNT 5.8 10^3/ul (4.8-10.8)
[2018-04-12 05:03] LABS: BASOPHILS % 0.5 % (0.0-2.0); EOSINOPHILS # 0.2 10^3/ul (0.0-0.5); EOSINOPHILS % 2.6 % (0.0-7.0); HEMATOCRIT 24.4 % (37.0-47.0); HEMOGLOBIN 7.9 g/dl (12.0-16.0); LYMPHOCYTES # 1.1 10^3/ul (0.8-2.9); LYMPHOCYTES % 19.2 % (15.0-51.0); MEAN CORPUSCULAR HEMOGLOBIN 28.6 pg (29.0-33.0); MEAN CORPUSCULAR HGB CONC 32.4 g/dl (32.0-37.0); MEAN CORPUSCULAR VOLUME 88.4 fl (82.0-101.0); MEAN PLATELET VOLUME 8.8 fl (7.4-10.4); MONOCYTE # 0.8 10^3/ul (0.3-0.9); NEUTROPHIL # 3.5 10^3/ul (1.6-7.5); NEUTROPHILS % 60.1 % (39.0-77.0); PLATELET COUNT 272 10^3/UL (140-415); RED BLOOD COUNT 2.76 10^6/ul (4.20-5.40); RED CELL DISTRIBUTION WIDTH 14.3 % (11.5-14.5)
[2018-04-12] MEDS: VANCOMYCIN HCL 1.5 GM in SOD CHLORIDE 0.9% 250 ML IVPB (06:48)
[2018-04-12] MEDS: LEVOTHYROXINE 50 MCG TAB PO (06:50)
[2018-04-12] MEDS: PANTOPRAZOLE (EC) 40 MG TAB PO (06:50)
[2018-04-12] MEDS: HYDROCODONE/APAP (10/325) TAB PO ×2 (06:51→22:01)
[2018-04-12] MEDS: DULOXETINE 30 MG CAP DR PO ×2 (09:09→21:53)
[2018-04-12] MEDS: CELECOXIB 100 MG CAP PO ×2 (09:09→21:53)
[2018-04-12] MEDS ORDERED: VANCOMYCIN IV PER PHARMACY XX (13:00)
[2018-04-12] MEDS: SOD FERRIC GLUC COMPLX 125 MG in SOD CHLORIDE 0.9% 100 ML IVPB (13:07)
[2018-04-12] MEDS: CEFAZOLIN 2 GM/50 ML (PMX) 50 ML IVPB ×2 (14:39→21:54)
[2018-04-12] MEDS ORDERED: morphine LIQ (10 MG/5 ML) CUP PO (17:00)
[2018-04-12] MEDS: DOCUSATE SODIUM 100 MG CAP PO (21:53)
[2018-04-13] MEDS: SOD CHLORIDE 0.9% 1,000 ML IV ×2 (02:07→20:58)
[2018-04-13 05:27] LABS: ABNORMAL IP MESSAGE 1; HEMATOCRIT 23.6 % (37.0-47.0); HEMOGLOBIN 7.6 g/dl (12.0-16.0); MEAN CORPUSCULAR HEMOGLOBIN 28.1 pg (29.0-33.0); MEAN CORPUSCULAR HGB CONC 32.2 g/dl (32.0-37.0); MEAN CORPUSCULAR VOLUME 87.4 fl (82.0-101.0); MEAN PLATELET VOLUME 9.2 fl (7.4-10.4); PLATELET COUNT 315 10^3/UL (140-415); RED CELL DISTRIBUTION WIDTH 14.2 % (11.5-14.5)
[2018-04-13 05:27] LABS: WHITE BLOOD COUNT 5.4 10^3/ul (4.8-10.8)
[2018-04-13 05:29] LABS: ADD MAN DIFF? YES; POSITIVE DIFF @See below
[2018-04-13 05:53] LABS: ANION GAP 5 (5-13); BLOOD UREA NITROGEN 11 mg/dl (7-20); CARBON DIOXIDE 27 mmol/L (21-31); CHLORIDE 107 mmol/L (97-110); CREATININE 0.75 mg/dl (0.44-1.00); Estimated GFR > 60 mL/min (>60); POTASSIUM 3.1 mmol/L (3.5-5.1); SODIUM 139 mmol/L (135-144)
[2018-04-13 06:00] LABS: CALCIUM 8.9 mg/dl (8.4-10.2); GLUCOSE 103 mg/dl (70-220); MAGNESIUM 1.9 mg/dl (1.7-2.5)
[2018-04-13] MEDS: LEVOTHYROXINE 50 MCG TAB PO (06:28)
[2018-04-13] MEDS: PANTOPRAZOLE (EC) 40 MG TAB PO (06:28)
[2018-04-13] MEDS: CEFAZOLIN 2 GM/50 ML (PMX) 50 ML IVPB ×3 (06:29→20:58)
[2018-04-13 07:47] LABS: BAND NEUTROPHILS #M 0.3 10^3/ul (0.0-0.6); BAND NEUTROPHILS % (M) 6 % (0-4); EOSINOPHILS % (M) 3 % (0-7); GIANT THROMBO% (M) 4 % (0-0); LYMPHOCYTES #M 0.7 10^3/ul (0.8-2.9); LYMPHOCYTES % (M) 14 % (15-51); METAMYELOCYTES %M 1 % (0-0); MONOCYTE #M 0.6 10^3/ul (0.3-0.9); MONOCYTES % (M) 12 % (0-11); MYELOCYTES #M 0.1 10^3/ul (0.0-0.0); MYELOCYTES % (M) 2 % (0-0); PLATELET ESTIMATE NORMAL; POLYCHROMASIA 2+ (0-0); SEG NEUT #M 3.4 10^3/ul (1.6-7.5); SEGMENTED NEUTROPHILS (M) % 62 % (39-77); SMUDGE%M 15 % (0-0)
[2018-04-13] MEDS ORDERED: ENOXAPARIN 40 MG/0.4 ML SYG SC (07:56)
[2018-04-13] MEDS: CELECOXIB 100 MG CAP PO ×2 (08:03→20:57)
[2018-04-13] MEDS: DOCUSATE SODIUM 100 MG CAP PO ×2 (08:03→20:57)
[2018-04-13] MEDS: DULOXETINE 30 MG CAP DR PO ×2 (08:03→20:57)
[2018-04-13] MEDS: ENOXAPARIN 40 MG/0.4 ML SYG SC (08:07)
[2018-04-13] MEDS: POTASSIUM CHLORIDE (SR) 20 MEQ TAB PO ×2 (13:03→16:46)
[2018-04-14 04:51] LABS: ABNORMAL IP MESSAGE 1; HEMATOCRIT 24.3 % (37.0-47.0); HEMOGLOBIN 7.9 g/dl (12.0-16.0); MEAN CORPUSCULAR HEMOGLOBIN 28.5 pg (29.0-33.0); MEAN CORPUSCULAR HGB CONC 32.5 g/dl (32.0-37.0); MEAN CORPUSCULAR VOLUME 87.7 fl (82.0-101.0); MEAN PLATELET VOLUME 8.8 fl (7.4-10.4); PLATELET COUNT 338 10^3/UL (140-415); RED BLOOD COUNT 2.77 10^6/ul (4.20-5.40); RED CELL DISTRIBUTION WIDTH 14.1 % (11.5-14.5)
[2018-04-14 04:51] LABS: WHITE BLOOD COUNT 6.8 10^3/ul (4.8-10.8)
[2018-04-14 04:54] LABS: ADD MAN DIFF? YES; POSITIVE DIFF @See below
[2018-04-14 05:12] LABS: ANION GAP 8 (5-13); BLOOD UREA NITROGEN 9 mg/dl (7-20); CALCIUM 9.3 mg/dl (8.4-10.2); CARBON DIOXIDE 28 mmol/L (21-31); CHLORIDE 102 mmol/L (97-110); CREATININE 0.61 mg/dl (0.44-1.00); Estimated GFR > 60 mL/min (>60); GLUCOSE 96 mg/dl (70-220); POTASSIUM 3.6 mmol/L (3.5-5.1); SODIUM 138 mmol/L (135-144)
[2018-04-14] MEDS: LEVOTHYROXINE 50 MCG TAB PO (06:11)
[2018-04-14] MEDS: PANTOPRAZOLE (EC) 40 MG TAB PO (06:11)
[2018-04-14] MEDS: CEFAZOLIN 2 GM/50 ML (PMX) 50 ML IVPB ×2 (06:12→13:53)
[2018-04-14] MEDS ORDERED: VANCOMYCIN IV PER PHARMACY XX (07:00)
[2018-04-14 08:01] LABS: ANISOCYTOSIS 1+ (0-0); BAND NEUTROPHILS #M 0.1 10^3/ul (0.0-0.6); BAND NEUTROPHILS % (M) 2 % (0-4); BASOPHIL #M 0.1 10^3/ul (0.0-0.0); BASOPHILS % (M) 2 % (0-2); EOSINOPHILS % (M) 3 % (0-7); GIANT THROMBO% (M) 2 % (0-0); LYMPHOCYTES #M 1.4 10^3/ul (0.8-2.9); LYMPHOCYTES % (M) 21 % (15-51); METAMYELOCYTES #M 0.1 10^3/ul (0.0-0.0); METAMYELOCYTES %M 2 % (0-0); MICROCYTOSIS 1+ (0-0); MONOCYTE #M 0.5 10^3/ul (0.3-0.9); MONOCYTES % (M) 8 % (0-11); MYELOCYTES #M 0.1 10^3/ul (0.0-0.0); MYELOCYTES % (M) 2 % (0-0); PLATELET ESTIMATE NORMAL; POLYCHROMASIA 1+ (0-0); SEG NEUT #M 4.1 10^3/ul (1.6-7.5); SEGMENTED NEUTROPHILS (M) % 60 % (39-77); SMUDGE%M 6 % (0-0)
[2018-04-14] MEDS: VANCOMYCIN HCL 2 GM in SOD CHLORIDE 0.9% 500 ML IVPB (09:16)
[2018-04-14] MEDS: CELECOXIB 100 MG CAP PO (09:16)
[2018-04-14] MEDS: DOCUSATE SODIUM 100 MG CAP PO (09:17)
[2018-04-14] MEDS: DULOXETINE 30 MG CAP DR PO (09:17)
[2018-04-14] MEDS: ENOXAPARIN 40 MG/0.4 ML SYG SC (09:22)
[2018-04-14] MEDS ORDERED: VANCOMYCIN HCL 1.5 GM in SOD CHLORIDE 0.9% 250 ML IVPB (21:00)
== END 2018-04-14 18:15 | disposition home health service (06) | DRG 559 ==
LOC: E/R 17:02 → MS1 04-10 18:58 → TEL 21:18
PROC: 0S993ZX Drainage of Right Hip Joint, Percutaneous Approach, Diagnostic (ICD-10-PCS; principal; 2018-04-11)
DX: T84.51XA Infection and inflammatory reaction due to internal right hip prosthesis, initial encounter (principal); A41.01 Sepsis due to Methicillin susceptible Staphylococcus aureus; M00.9 Pyogenic arthritis, unspecified; E03.9 Hypothyroidism, unspecified; M16.12 Unilateral primary osteoarthritis, left hip; D50.9 Iron deficiency anemia, unspecified; E66.9 Obesity, unspecified; F32.9 Major depressive disorder, single episode, unspecified; K59.00 Constipation, unspecified; Z96.641 Presence of right artificial hip joint; Z68.34 Body mass index [BMI] 34.0-34.9, adult
CPT/HCPCS: 36415; 71045; 74177; 77002; 80048; 80053; 80061; 80202; 83036; 83605; 83735; 84443; 85025; 85610; 85651; 85730; 86140; 86850; 86900; 86901; 86920; 87040; 87070; 89060; 93005; 93306; 96365; 96375; 99291-25

== ENCOUNTER 2018-04-21 10:08 | Inpatient (IN) | payer OTHER ==
[2018-04-21] MEDS: TRANEXAMIC ACID 1,000 MG in D5W 100 ML AT INCISION X1 IVPB (06:00)
[2018-04-21] MEDS: LACTATED RINGER'S 1,000 ML IV ×4 (06:00→22:00)
[2018-04-21] MEDS: TRANEXAMIC ACID 1,000 MG in D5W 100 ML AT CLOSURE X1 IVPB (06:00)
[~2018-04-21 10:08] MED LIST: ACETAMINOPHEN 500 MG TAB PO
[2018-04-21] MEDS: DEXAMETHASONE 4 MG/ML 1 ML INJ IV (11:36)
[2018-04-21] MEDS: ACETAMINOPHEN 1000MG/100ML IV 100 ML IVPB (11:46)
[2018-04-21] MEDS ORDERED: LIDOCAINE 2% (SDV) 5 ML INJ (12:57)
[2018-04-21] MEDS ORDERED: PROPOFOL 20 ML (12:57)
[2018-04-21] MEDS ORDERED: FENTAnyl 50 MCG/ML VIAL ×2 (12:58→14:29)
[2018-04-21] MEDS ORDERED: MIDAZOLAM 1 MG/ML 2 ML INJ (12:58)
[2018-04-21] MEDS ORDERED: ONDANSETRON 4 MG INJ (13:33)
[2018-04-21] MEDS ORDERED: FAMOTIDINE 20 MG INJ (13:33)
[2018-04-21] MEDS ORDERED: METHYLENE BLUE 1% 10 ML INJ (13:45)
[2018-04-21] MEDS ORDERED: MINERAL OIL LIGHT 10 ML VIAL (13:45)
[2018-04-21] MEDS: BACITRACIN 50000 UNITS INJ (14:15)
[2018-04-21] MEDS: TOBRAMYCIN 1.2 GM POWDER (14:16)
[2018-04-21] MEDS: POLYMYXIN B 500000 UNIT INJ (14:16)
[2018-04-21] MEDS: VANCOMYCIN 1 GM INJ (14:16)
[2018-04-21] MEDS ORDERED: HYDROmorphONE 2 MG/ML SYG (15:10)
[2018-04-21] MEDS ORDERED: PROCHLORPERAZINE 10 MG INJ IV (16:00)
[2018-04-21] MEDS ORDERED: FENTAnyl 50 MCG/ML VIAL IV (16:00)
[2018-04-21] MEDS ORDERED: DIPHENHYDRAMINE 50 MG INJ IV (16:00)
[2018-04-21] MEDS ORDERED: BISACODYL 10 MG SUPP PR (18:00)
[2018-04-21] MEDS ORDERED: SENNA/DOCUSATE NA (8.6MG/50MG) TAB PO (18:00)
[2018-04-21] MEDS ORDERED: oxyCODONE 5 MG TAB PO (18:00)
[2018-04-21] MEDS ORDERED: NACL 0.9% 3 ML SYG IV (18:00)
[2018-04-21] MEDS: ONDANSETRON 4 MG INJ IV ×2 (18:14→19:41)
[2018-04-21] MEDS: MEPERIDINE 25 MG INJ IV (18:14)
[2018-04-21] MEDS: HYDROmorphONE 1 MG/5 ML IV SYRINGE IV ×6 (18:15→19:17)
[2018-04-21] MEDS: VANCOMYCIN 1 GM (PMX) 250 ML IVPB (18:16)
[2018-04-21] MEDS: HYDROmorphONE 1 MG/ML SYG IV (20:16)
[2018-04-21] MEDS: GABAPENTIN 100 MG CAP PO (21:24)
[2018-04-21] MEDS: DULOXETINE 30 MG CAP DR PO (21:24)
[2018-04-21] MEDS ORDERED: CEFAZOLIN 2 GM/50 ML (PMX) 50 ML IVPB (22:00)
[2018-04-22] MEDS: oxyCODONE 5 MG TAB PO ×2 (00:09→06:39)
[2018-04-22] MEDS: HYDROmorphONE 1 MG/ML SYG IV (03:46)
[2018-04-22 05:32] LABS: WHITE BLOOD COUNT 11.9 10^3/ul (4.8-10.8)
[2018-04-22 05:32] LABS: ABNORMAL IP MESSAGE 1; HEMATOCRIT 22.2 % (37.0-47.0); MEAN CORPUSCULAR HEMOGLOBIN 28.5 pg (29.0-33.0); MEAN CORPUSCULAR HGB CONC 30.6 g/dl (32.0-37.0); MEAN CORPUSCULAR VOLUME 92.9 fl (82.0-101.0); PLATELET COUNT 433 10^3/UL (140-415); RED BLOOD COUNT 2.39 10^6/ul (4.20-5.40); RED CELL DISTRIBUTION WIDTH 15.4 % (11.5-14.5)
[2018-04-22 05:33] LABS: POSITIVE DIFF @See below
[2018-04-22 05:34] LABS: ADD MAN DIFF? YES; HEMOGLOBIN 6.8 g/dl (12.0-16.0)
[2018-04-22] MEDS: LACTATED RINGER'S 1,000 ML IV ×4 (06:00→18:50)
[2018-04-22 06:18] LABS: ANION GAP 10 (5-13); BLOOD UREA NITROGEN 15 mg/dl (7-20); CALCIUM 9.1 mg/dl (8.4-10.2); CARBON DIOXIDE 28 mmol/L (21-31); CHLORIDE 103 mmol/L (97-110); CREATININE 0.66 mg/dl (0.44-1.00); Estimated GFR > 60 mL/min (>60); GLUCOSE 127 mg/dl (70-220); POTASSIUM 4.2 mmol/L (3.5-5.1); SODIUM 141 mmol/L (135-144)
[2018-04-22] MEDS: PANTOPRAZOLE (EC) 40 MG TAB PO (06:28)
[2018-04-22] MEDS: LEVOTHYROXINE 50 MCG TAB PO (06:28)
[2018-04-22] MEDS: VANCOMYCIN 1 GM (PMX) 250 ML IVPB (06:29)
[2018-04-22 07:43] LABS: ANISOCYTOSIS 1+ (0-0); HYPOCHROMASIA 2+ (0-0); LYMPHOCYTES % (M) 9 % (15-51); MICROCYTOSIS 1+ (0-0); MONOCYTE #M 0.4 10^3/ul (0.3-0.9); MONOCYTES % (M) 4 % (0-11); MYELOCYTES #M 0.1 10^3/ul (0.0-0.0); MYELOCYTES % (M) 1 % (0-0); PLATELET ESTIMATE NORMAL; POLYCHROMASIA 1+ (0-0); SEGMENTED NEUTROPHILS (M) % 86 % (39-77); SMUDGE%M 36 % (0-0)
[2018-04-22 08:32] LABS: ADD MAN DIFF? NO
[2018-04-22 08:35] LABS: BASOPHILS % 0.2 % (0.0-2.0); HEMATOCRIT 23.3 % (37.0-47.0); HEMOGLOBIN 7.2 g/dl (12.0-16.0); LYMPHOCYTES # 1.9 10^3/ul (0.8-2.9); LYMPHOCYTES % 15.8 % (15.0-51.0); MEAN CORPUSCULAR HEMOGLOBIN 28.8 pg (29.0-33.0); MEAN CORPUSCULAR HGB CONC 30.9 g/dl (32.0-37.0); MEAN CORPUSCULAR VOLUME 93.2 fl (82.0-101.0); MEAN PLATELET VOLUME 8.9 fl (7.4-10.4); MONOCYTE # 0.7 10^3/ul (0.3-0.9); MONOCYTES % 5.7 % (0.0-11.0); NEUTROPHIL # 9.5 10^3/ul (1.6-7.5); NEUTROPHILS % 77.6 % (39.0-77.0); PLATELET COUNT 501 10^3/UL (140-415); RED CELL DISTRIBUTION WIDTH 15.7 % (11.5-14.5)
[2018-04-22 08:35] LABS: WHITE BLOOD COUNT 12.2 10^3/ul (4.8-10.8)
[2018-04-22] MEDS: DULOXETINE 30 MG CAP DR PO ×2 (09:30→20:48)
[2018-04-22] MEDS: CELECOXIB 100 MG CAP PO ×2 (09:30→20:48)
[2018-04-22] MEDS: CALCIUM/VITAMIN D (500/200) TAB PO (09:30)
[2018-04-22] MEDS: DOCUSATE SODIUM 250 MG CAP PO (09:31)
[2018-04-22] MEDS: GABAPENTIN 100 MG CAP PO ×3 (09:31→20:48)
[2018-04-22] MEDS: ASCORBIC ACID 500 MG TAB PO (09:31)
[2018-04-22] MEDS: ASPIRIN (EC) 81 MG TAB PO ×2 (09:38→20:48)
[2018-04-22] MEDS: KETOROLAC 15 MG INJ IV (09:38)
[2018-04-22] MEDS: HYDROCODONE/APAP (10/325) TAB PO ×2 (11:54→19:34)
[2018-04-22 13:00] LABS: IRON 27 ug/dl (35-150)
[2018-04-22 13:10] LABS: % IRON SATURATION 12 % SAT (22-52); TOTAL IRON BINDING CAPACITY 232 ug/dl (241-421)
[2018-04-22] MEDS ORDERED: ONDANSETRON 4 MG INJ IV (18:00)
[2018-04-23] MEDS: CEFAZOLIN 2 GM/50 ML (PMX) 50 ML IVPB ×4 (00:17→23:04)
[2018-04-23] MEDS: HYDROCODONE/APAP (10/325) TAB PO ×4 (04:12→23:07)
[2018-04-23 05:25] LABS: ADD MAN DIFF? NO
[2018-04-23 05:29] LABS: BASOPHILS % 0.3 % (0.0-2.0); EOSINOPHILS # 0.3 10^3/ul (0.0-0.5); HEMATOCRIT 23.1 % (37.0-47.0); HEMOGLOBIN 7.2 g/dl (12.0-16.0); LYMPHOCYTES # 1.9 10^3/ul (0.8-2.9); MEAN CORPUSCULAR HEMOGLOBIN 28.7 pg (29.0-33.0); MEAN CORPUSCULAR HGB CONC 31.2 g/dl (32.0-37.0); MEAN PLATELET VOLUME 9.3 fl (7.4-10.4); MONOCYTES % 9.4 % (0.0-11.0); NEUTROPHIL # 7.6 10^3/ul (1.6-7.5); NEUTROPHILS % 69.3 % (39.0-77.0); PLATELET COUNT 390 10^3/UL (140-415); RED BLOOD COUNT 2.51 10^6/ul (4.20-5.40); RED CELL DISTRIBUTION WIDTH 15.9 % (11.5-14.5)
[2018-04-23 06:07] LABS: ANION GAP 12 (5-13); BLOOD UREA NITROGEN 17 mg/dl (7-20); CARBON DIOXIDE 27 mmol/L (21-31); CHLORIDE 100 mmol/L (97-110); CREATININE 1.04 mg/dl (0.44-1.00); Estimated GFR 55 mL/min (>60); GLUCOSE 105 mg/dl (70-220); POTASSIUM 4.1 mmol/L (3.5-5.1); SODIUM 139 mmol/L (135-144)
[2018-04-23] MEDS: LEVOTHYROXINE 50 MCG TAB PO (06:50)
[2018-04-23] MEDS: PANTOPRAZOLE (EC) 40 MG TAB PO (06:50)
[2018-04-23] MEDS: CALCIUM/VITAMIN D (500/200) TAB PO (09:06)
[2018-04-23] MEDS: GABAPENTIN 100 MG CAP PO ×3 (09:06→20:37)
[2018-04-23] MEDS: DULOXETINE 30 MG CAP DR PO ×2 (09:06→20:37)
[2018-04-23] MEDS: ASPIRIN (EC) 81 MG TAB PO ×2 (09:06→20:37)
[2018-04-23] MEDS: CELECOXIB 100 MG CAP PO ×2 (09:06→20:37)
[2018-04-23] MEDS: ASCORBIC ACID 500 MG TAB PO (09:06)
[2018-04-23] MEDS: DOCUSATE SODIUM 250 MG CAP PO (09:06)
[2018-04-24 05:29] LABS: ABNORMAL IP MESSAGE 1; ADD MAN DIFF? NO; BASOPHILS % 0.5 % (0.0-2.0); EOSINOPHILS # 0.4 10^3/ul (0.0-0.5); EOSINOPHILS % 4.7 % (0.0-7.0); HEMATOCRIT 22.1 % (37.0-47.0); LYMPHOCYTES # 1.6 10^3/ul (0.8-2.9); LYMPHOCYTES % 19.3 % (15.0-51.0); MEAN CORPUSCULAR HEMOGLOBIN 28.6 pg (29.0-33.0); MEAN CORPUSCULAR HGB CONC 31.2 g/dl (32.0-37.0); MEAN CORPUSCULAR VOLUME 91.7 fl (82.0-101.0); MEAN PLATELET VOLUME 9.1 fl (7.4-10.4); MONOCYTES % 11.7 % (0.0-11.0); NEUTROPHIL # 5.2 10^3/ul (1.6-7.5); NEUTROPHILS % 62.6 % (39.0-77.0); PLATELET COUNT 352 10^3/UL (140-415); RED BLOOD COUNT 2.41 10^6/ul (4.20-5.40); RED CELL DISTRIBUTION WIDTH 15.7 % (11.5-14.5)
[2018-04-24 05:29] LABS: WHITE BLOOD COUNT 8.3 10^3/ul (4.8-10.8)
[2018-04-24 06:02] LABS: ANION GAP 9 (5-13); BLOOD UREA NITROGEN 14 mg/dl (7-20); CALCIUM 9.4 mg/dl (8.4-10.2); CARBON DIOXIDE 30 mmol/L (21-31); CHLORIDE 100 mmol/L (97-110); CREATININE 1.02 mg/dl (0.44-1.00); Estimated GFR 56 mL/min (>60); GLUCOSE 98 mg/dl (70-220); SODIUM 139 mmol/L (135-144)
[2018-04-24] MEDS: PANTOPRAZOLE (EC) 40 MG TAB PO (06:23)
[2018-04-24] MEDS: CEFAZOLIN 2 GM/50 ML (PMX) 50 ML IVPB ×3 (06:23→21:00)
[2018-04-24] MEDS: LEVOTHYROXINE 50 MCG TAB PO (06:23)
[2018-04-24 06:56] LABS: POSITIVE DIFF @See below
[2018-04-24 06:57] LABS: HEMOGLOBIN 6.9 g/dl (12.0-16.0)
[2018-04-24] MEDS: HYDROCODONE/APAP (10/325) TAB PO ×2 (09:06→15:24)
[2018-04-24] MEDS: DOCUSATE SODIUM 250 MG CAP PO (09:06)
[2018-04-24] MEDS: CELECOXIB 100 MG CAP PO ×2 (09:06→20:55)
[2018-04-24] MEDS: DULOXETINE 30 MG CAP DR PO ×2 (09:06→20:54)
[2018-04-24] MEDS: GABAPENTIN 100 MG CAP PO ×3 (09:07→20:56)
[2018-04-24] MEDS: ASCORBIC ACID 500 MG TAB PO (09:07)
[2018-04-24] MEDS: ASPIRIN (EC) 81 MG TAB PO ×2 (09:07→20:56)
[2018-04-24] MEDS: CALCIUM/VITAMIN D (500/200) TAB PO (09:07)
[2018-04-24 09:37] LABS: ANISOCYTOSIS 2+ (0-0); BAND NEUTROPHILS #M 0.3 10^3/ul (0.0-0.6); BAND NEUTROPHILS % (M) 4 % (0-4); EOSINOPHILS % (M) 6 % (0-7); LYMPHOCYTES #M 1.1 10^3/ul (0.8-2.9); LYMPHOCYTES % (M) 14 % (15-51); MICROCYTOSIS 2+ (0-0); MONOCYTE #M 0.5 10^3/ul (0.3-0.9); MONOCYTES % (M) 7 % (0-11); OVALOCYTES 1+ (0-0); PLATELET ESTIMATE NORMAL; POLYCHROMASIA 3+ (0-0); SEG NEUT #M 5.8 10^3/ul (1.6-7.5); SEGMENTED NEUTROPHILS (M) % 69 % (39-77); SMUDGE%M 3 % (0-0)
[2018-04-24 10:01] LABS: IMMEDIATE SPIN CROSSMATCH 1 2
[2018-04-24] MEDS: SOD FERRIC GLUC COMPLX 125 MG in SOD CHLORIDE 0.9% 100 ML IVPB (12:45)
[2018-04-24 16:56] LABS: HEMATOCRIT 24.7 % (37.0-47.0); HEMOGLOBIN 7.9 g/dl (12.0-16.0)
[2018-04-25] MEDS: HYDROCODONE/APAP (10/325) TAB PO ×4 (00:17→21:10)
[2018-04-25 05:18] LABS: ADD MAN DIFF? NO
[2018-04-25] MEDS: CEFAZOLIN 2 GM/50 ML (PMX) 50 ML IVPB ×3 (05:21→22:35)
[2018-04-25] MEDS: PANTOPRAZOLE (EC) 40 MG TAB PO (05:21)
[2018-04-25 05:25] LABS: BASOPHIL # 0.1 10^3/ul (0.0-0.1); BASOPHILS % 0.8 % (0.0-2.0); EOSINOPHILS # 0.4 10^3/ul (0.0-0.5); EOSINOPHILS % 5.8 % (0.0-7.0); HEMATOCRIT 23.7 % (37.0-47.0); HEMOGLOBIN 7.5 g/dl (12.0-16.0); LYMPHOCYTES # 1.4 10^3/ul (0.8-2.9); LYMPHOCYTES % 21.4 % (15.0-51.0); MEAN CORPUSCULAR HEMOGLOBIN 28.5 pg (29.0-33.0); MEAN CORPUSCULAR HGB CONC 31.6 g/dl (32.0-37.0); MEAN CORPUSCULAR VOLUME 90.1 fl (82.0-101.0); MEAN PLATELET VOLUME 9.1 fl (7.4-10.4); MONOCYTE # 0.8 10^3/ul (0.3-0.9); MONOCYTES % 11.7 % (0.0-11.0); NEUTROPHIL # 3.8 10^3/ul (1.6-7.5); NEUTROPHILS % 58.5 % (39.0-77.0); PLATELET COUNT 364 10^3/UL (140-415); RED BLOOD COUNT 2.63 10^6/ul (4.20-5.40); RED CELL DISTRIBUTION WIDTH 15.5 % (11.5-14.5)
[2018-04-25 05:25] LABS: WHITE BLOOD COUNT 6.5 10^3/ul (4.8-10.8)
[2018-04-25 05:52] LABS: ANION GAP 13 (5-13); BLOOD UREA NITROGEN 17 mg/dl (7-20); CALCIUM 9.6 mg/dl (8.4-10.2); CARBON DIOXIDE 31 mmol/L (21-31); CHLORIDE 98 mmol/L (97-110); CREATININE 1.12 mg/dl (0.44-1.00); Estimated GFR 51 mL/min (>60); GLUCOSE 94 mg/dl (70-220); POTASSIUM 3.7 mmol/L (3.5-5.1); SODIUM 142 mmol/L (135-144)
[2018-04-25] MEDS: LEVOTHYROXINE 50 MCG TAB PO (06:11)
[2018-04-25] MEDS: ASPIRIN (EC) 81 MG TAB PO ×2 (09:14→21:05)
[2018-04-25] MEDS: GABAPENTIN 100 MG CAP PO ×3 (09:14→21:06)
[2018-04-25] MEDS: ASCORBIC ACID 500 MG TAB PO (09:14)
[2018-04-25] MEDS: CALCIUM/VITAMIN D (500/200) TAB PO (09:14)
[2018-04-25] MEDS: CELECOXIB 100 MG CAP PO ×2 (09:14→21:05)
[2018-04-25] MEDS: DOCUSATE SODIUM 250 MG CAP PO (09:14)
[2018-04-25] MEDS: DULOXETINE 30 MG CAP DR PO ×2 (09:14→21:06)
[2018-04-25] MEDS: SOD FERRIC GLUC COMPLX 125 MG in SOD CHLORIDE 0.9% 100 ML IVPB (13:24)
[2018-04-26 04:53] LABS: ADD MAN DIFF? NO
[2018-04-26 04:55] LABS: WHITE BLOOD COUNT 5.6 10^3/ul (4.8-10.8)
[2018-04-26 04:55] LABS: BASOPHIL # 0.1 10^3/ul (0.0-0.1); BASOPHILS % 0.9 % (0.0-2.0); EOSINOPHILS # 0.4 10^3/ul (0.0-0.5); HEMOGLOBIN 7.5 g/dl (12.0-16.0); LYMPHOCYTES # 1.3 10^3/ul (0.8-2.9); LYMPHOCYTES % 23.7 % (15.0-51.0); MEAN CORPUSCULAR HEMOGLOBIN 28.1 pg (29.0-33.0); MEAN CORPUSCULAR HGB CONC 31.3 g/dl (32.0-37.0); MEAN CORPUSCULAR VOLUME 89.9 fl (82.0-101.0); MEAN PLATELET VOLUME 8.5 fl (7.4-10.4); MONOCYTES % 17.6 % (0.0-11.0); NEUTROPHIL # 2.6 10^3/ul (1.6-7.5); NEUTROPHILS % 47.4 % (39.0-77.0); PLATELET COUNT 366 10^3/UL (140-415); RED BLOOD COUNT 2.67 10^6/ul (4.20-5.40); RED CELL DISTRIBUTION WIDTH 15.7 % (11.5-14.5)
[2018-04-26] MEDS: CEFAZOLIN 2 GM/50 ML (PMX) 50 ML IVPB ×2 (05:29→14:27)
[2018-04-26] MEDS: PANTOPRAZOLE (EC) 40 MG TAB PO (05:30)
[2018-04-26] MEDS: HYDROCODONE/APAP (10/325) TAB PO (05:36)
[2018-04-26 05:38] LABS: ANION GAP 12 (5-13); BLOOD UREA NITROGEN 16 mg/dl (7-20); CALCIUM 9.6 mg/dl (8.4-10.2); CARBON DIOXIDE 33 mmol/L (21-31); CHLORIDE 97 mmol/L (97-110); CREATININE 0.89 mg/dl (0.44-1.00); Estimated GFR > 60 mL/min (>60); GLUCOSE 93 mg/dl (70-220); POTASSIUM 3.6 mmol/L (3.5-5.1); SODIUM 142 mmol/L (135-144)
[2018-04-26] MEDS: LEVOTHYROXINE 50 MCG TAB PO (06:27)
[2018-04-26] MEDS: DULOXETINE 30 MG CAP DR PO (09:17)
[2018-04-26] MEDS: CALCIUM/VITAMIN D (500/200) TAB PO (09:17)
[2018-04-26] MEDS: ASCORBIC ACID 500 MG TAB PO (09:17)
[2018-04-26] MEDS: CELECOXIB 100 MG CAP PO (09:17)
[2018-04-26] MEDS: DOCUSATE SODIUM 250 MG CAP PO (09:17)
[2018-04-26] MEDS: GABAPENTIN 100 MG CAP PO ×2 (09:17→12:55)
[2018-04-26] MEDS: ASPIRIN (EC) 81 MG TAB PO (09:17)
[2018-04-26] MEDS: LIDOCAINE 1% (MPF) 5 ML VIAL SC ×2 (12:53)
[2018-04-26] MEDS: SOD FERRIC GLUC COMPLX 125 MG in SOD CHLORIDE 0.9% 100 ML IVPB (12:56)
== END 2018-04-26 18:50 | disposition home health service (06) | DRG 467 ==
LOC: REC 10:08 → MS1 19:48
PROC: 0SR90EZ Replacement of Right Hip Joint with Articulating Spacer, Open Approach (ICD-10-PCS; principal; 2018-04-21 12:30)
PROC: 0SP90JZ Removal of Synthetic Substitute from Right Hip Joint, Open Approach (ICD-10-PCS; 2018-04-21 12:30)
PROC: 3E0U029 Introduction of Other Anti-infective into Joints, Open Approach (ICD-10-PCS; 2018-04-21 12:30)
PROC: 30233N1 Transfusion of Nonautologous Red Blood Cells into Peripheral Vein, Percutaneous Approach (ICD-10-PCS; 2018-04-21 12:54)
PROC: 02HV33Z Insertion of Infusion Device into Superior Vena Cava, Percutaneous Approach (ICD-10-PCS; 2018-04-21 12:54)
DX: T84.51XA Infection and inflammatory reaction due to internal right hip prosthesis, initial encounter (principal); D62 Acute posthemorrhagic anemia; B95.61 Methicillin susceptible Staphylococcus aureus infection as the cause of diseases classified elsewhere; D50.9 Iron deficiency anemia, unspecified; E03.9 Hypothyroidism, unspecified; E66.9 Obesity, unspecified; F32.9 Major depressive disorder, single episode, unspecified; Z68.34 Body mass index [BMI] 34.0-34.9, adult
CPT/HCPCS: 36430; 36569; 71045; 72170; 76937; 80048; 82728; 83540; 84703; 85014; 85018; 85025; 86850; 86900; 86901; 86920; 87070; 87075; 87102; 87116; 88300; 88304; 97116; 97162; 97165; 97530

== ENCOUNTER 2018-07-07 05:50 | Inpatient (IN) | payer OTHER ==
[2018-07-07] MEDS ORDERED: ACETAMINOPHEN 500 MG TAB PO (06:30)
[2018-07-07] MEDS: ACETAMINOPHEN 1000MG/100ML IV 100 ML IVPB (06:30)
[2018-07-07] MEDS: CEFAZOLIN 2 GM/50 ML (PMX) 50 ML (FOR WT < 120 KG) IVPB (06:30)
[2018-07-07] MEDS: TRANEXAMIC ACID 1GM/100ML(PMX) 100 ML AT CLOSURE X1 IVPB (06:30)
[2018-07-07] MEDS: DEXAMETHASONE 4 MG/ML 1 ML INJ IV (06:53)
[2018-07-07] MEDS: LACTATED RINGER'S 1,000 ML IV ×3 (06:53→22:52)
[2018-07-07] MEDS ORDERED: DESFLURANE 15 MIN (07:00)
[2018-07-07] MEDS ORDERED: GLYCOPYRROLATE 0.4 MG INJ (07:25)
[2018-07-07] MEDS ORDERED: CEFAZOLIN 1 GM INJ (07:25)
[2018-07-07] MEDS ORDERED: ROCURONIUM 50 MG INJ (07:25)
[2018-07-07] MEDS ORDERED: DEXAMETHASONE 4 MG/ML 5 ML INJ (07:25)
[2018-07-07] MEDS ORDERED: PROPOFOL 20 ML (07:25)
[2018-07-07] MEDS ORDERED: MIDAZOLAM 1 MG/ML 2 ML INJ (07:25)
[2018-07-07] MEDS ORDERED: FENTAnyl 50 MCG/ML VIAL (07:25)
[2018-07-07] MEDS ORDERED: ONDANSETRON 4 MG INJ (07:25)
[2018-07-07] MEDS ORDERED: NEOSTIGMINE 3 MG/3 ML SYRINGE (07:25)
[2018-07-07] MEDS ORDERED: morphine SULFATE/PF (10 MG/10 ML) INJ (07:27)
[2018-07-07] MEDS ORDERED: hydrALAzine 20 MG INJ IV (07:30)
[2018-07-07] MEDS ORDERED: HYDROmorphONE 0.5 MG/0.5 ML SYG IV ×2 (07:30)
[2018-07-07] MEDS ORDERED: FENTAnyl 50 MCG/ML VIAL IV ×3 (07:30)
[2018-07-07] MEDS ORDERED: ALBUTEROL 0.083% (NEB) 2.5 MG/3 ML AMP HHN (07:30)
[2018-07-07] MEDS ORDERED: IPRATROPIUM (NEB) 0.5 MG/2.5 ML AMP HHN (07:30)
[2018-07-07] MEDS ORDERED: HYDROmorphONE 1 MG/5 ML IV SYRINGE IV ×2 (07:30)
[2018-07-07] MEDS ORDERED: TRIMETHOBENZAMIDE 100 MG/ML VIAL IM ×2 (07:30)
[2018-07-07] MEDS ORDERED: NALOXONE (0.4 MG/ML) INJ IV (07:30)
[2018-07-07] MEDS ORDERED: NALBUPHINE HCL (10 MG/1 ML) INJ IV (07:30)
[2018-07-07] MEDS ORDERED: ONDANSETRON 4 MG INJ IV (07:30)
[2018-07-07] MEDS ORDERED: MIDAZOLAM 1 MG/ML 2 ML INJ IV (07:30)
[2018-07-07] MEDS ORDERED: EPHEDrine SULFATE 50 MG/5 ML SYG IV (07:30)
[2018-07-07] MEDS ORDERED: LABETALOL HCL 20MG INJ IV (07:30)
[2018-07-07] MEDS ORDERED: OXYCODONE/ACETAMINOPHEN (5/325) TAB PO ×2 (07:30)
[2018-07-07] MEDS: TRANEXAMIC ACID 1GM/100ML(PMX) 100 ML AT INCISION X1 IVPB ×2 (08:01)
[2018-07-07] MEDS: POLYMYXIN B 500000 UNIT INJ (08:36)
[2018-07-07] MEDS: BACITRACIN 50000 UNITS INJ (08:36)
[2018-07-07] MEDS: VANCOMYCIN 1 GM INJ (09:38)
[2018-07-07] MEDS: TOBRAMYCIN 1.2 GM POWDER (09:38)
[2018-07-07] MEDS ORDERED: oxyCODONE 5 MG TAB PO ×3 (11:00)
[2018-07-07] MEDS ORDERED: NACL 0.9% 3 ML SYG IV (11:00)
[2018-07-07] MEDS ORDERED: MAGNESIUM HYDROXIDE 30ML CUP PO (11:00)
[2018-07-07] MEDS: ONDANSETRON 4 MG INJ IV (11:30)
[2018-07-07] MEDS: MEPERIDINE 25 MG INJ IV (11:30)
[2018-07-07] MEDS: HYDROmorphONE 1 MG/5 ML IV SYRINGE IV (11:50)
[2018-07-07] MEDS: DIPHENHYDRAMINE 50 MG INJ IV ×3 (12:06→19:38)
[2018-07-07] MEDS: GABAPENTIN 100 MG CAP PO ×2 (13:46→20:17)
[2018-07-07] MEDS: CLINDAMYCIN 900 MG/D5W (PMX) 50 ML IVPB ×2 (16:33→22:51)
[2018-07-07] MEDS: FERROUS SULFATE (EC) 325 MG TAB PO (20:17)
[2018-07-07] MEDS: KETOROLAC 15 MG INJ IV (22:51)
[2018-07-08] MEDS: LACTATED RINGER'S 1,000 ML IV (04:47)
[2018-07-08 05:18] LABS: WHITE BLOOD COUNT 8.9 10^3/ul (4.8-10.8)
[2018-07-08 05:18] LABS: ADD MAN DIFF? NO; BASOPHILS % 0.2 % (0.0-2.0); EOSINOPHILS % 0.1 % (0.0-7.0); HEMATOCRIT 24.8 % (37.0-47.0); HEMOGLOBIN 8.1 g/dl (12.0-16.0); LYMPHOCYTES # 1.3 10^3/ul (0.8-2.9); LYMPHOCYTES % 14.4 % (15.0-51.0); MEAN CORPUSCULAR HGB CONC 32.7 g/dl (32.0-37.0); MEAN CORPUSCULAR VOLUME 91.9 fl (82.0-101.0); MEAN PLATELET VOLUME 9.7 fl (7.4-10.4); MONOCYTES % 11.5 % (0.0-11.0); NEUTROPHIL # 6.5 10^3/ul (1.6-7.5); NEUTROPHILS % 73.3 % (39.0-77.0); PLATELET COUNT 252 10^3/UL (140-415); RED CELL DISTRIBUTION WIDTH 14.6 % (11.5-14.5)
[2018-07-08 05:39] LABS: ANION GAP 10 (5-13); BLOOD UREA NITROGEN 26 mg/dl (7-20); CALCIUM 9.4 mg/dl (8.4-10.2); CARBON DIOXIDE 23 mmol/L (21-31); CHLORIDE 103 mmol/L (97-110); CREATININE 0.71 mg/dl (0.44-1.00); Estimated GFR > 60 mL/min (>60); GLUCOSE 106 mg/dl (70-220); POTASSIUM 5.2 mmol/L (3.5-5.1); SODIUM 136 mmol/L (135-144)
[2018-07-08] MEDS: KETOROLAC 15 MG INJ IV ×3 (06:02→18:43)
[2018-07-08] MEDS: PANTOPRAZOLE (EC) 40 MG TAB PO (06:02)
[2018-07-08] MEDS: CLINDAMYCIN 900 MG/D5W (PMX) 50 ML IVPB (06:02)
[2018-07-08] MEDS: LEVOTHYROXINE 50 MCG TAB PO (06:58)
[2018-07-08] MEDS: CELECOXIB 100 MG CAP PO ×2 (09:23→20:48)
[2018-07-08] MEDS: FERROUS SULFATE (EC) 325 MG TAB PO ×2 (09:24→20:48)
[2018-07-08] MEDS: ASPIRIN (EC) 81 MG TAB PO ×2 (09:24→20:47)
[2018-07-08] MEDS: GABAPENTIN 100 MG CAP PO ×3 (09:24→20:48)
[2018-07-08] MEDS: DOCUSATE SODIUM 100 MG CAP PO ×2 (09:24→20:47)
[2018-07-08] MEDS ORDERED: ONDANSETRON 4 MG INJ IV (11:00)
[2018-07-08 12:32] LABS: ANION GAP 8 (5-13); BLOOD UREA NITROGEN 25 mg/dl (7-20); CALCIUM 9.5 mg/dl (8.4-10.2); CARBON DIOXIDE 26 mmol/L (21-31); CHLORIDE 101 mmol/L (97-110); Estimated GFR > 60 mL/min (>60); GLUCOSE 90 mg/dl (70-220); SODIUM 135 mmol/L (135-144)
== END 2018-07-08 21:15 | disposition home or self-care (01) | DRG 468 ==
LOC: REC 05:50 → MS1 12:31
PROC: 0SR904A Replacement of Right Hip Joint with Ceramic on Polyethylene Synthetic Substitute, Uncemented, Open Approach (ICD-10-PCS; principal; 2018-07-07 07:30)
PROC: 0SP908Z Removal of Spacer from Right Hip Joint, Open Approach (ICD-10-PCS; 2018-07-07 07:30)
DX: Z47.32 Aftercare following explantation of hip joint prosthesis (principal); Z96.641 Presence of right artificial hip joint; E03.9 Hypothyroidism, unspecified; D50.9 Iron deficiency anemia, unspecified
CPT/HCPCS: 73530; 80048; 85025; 86850; 86870; 86900; 86901; 87070; 87075; 87081; 87102; 88300; 88305; 88331; 97116; 97161; 97166; 97530